=== PATIENT | male | born 1965 | race American Indian/Alaskan Native ===

== ENCOUNTER 2017-05-09 08:48 | Inpatient (IN) | payer OTHER ==
--- NOTE | 2017-05-09 09:22 | Emergency Department Report ---
Chief Complaint: Chest Pain Stated Complaint: SOB,HTN Time Seen by Provider: 05/09/17 09:16 - HPI History of Present Illness: PT c/o cough "for a while" pt also states that his stomach has been bloated. PT states now his right leg is swollen - ROS Review of Systems: + cough, worse at night + abd discomfort + ext edema - Exam Vital Signs: Vital Signs 05/09/17 09:04 Temperature 98 F Pulse Rate 102 H Respiratory 16 Rate Blood Pressure 182/136 O2 Sat by Pulse 98 Oximetry MSE screening note: Focused history and physical exam performed. Due to findings the following was ordered: labs, xr ED Disposition for MSE Condition: Stable
--- NOTE | 2017-05-09 09:36 | XRay Report ---
Chest 2 views: History: Cough. Findings: Cardiomegaly. Trachea is midline. Mild pulmonary venous congestion with minimal fluid in the horizontal and oblique fissures. Normal CP angles. No consolidation. Impression: Probable early CHF.
[2017-05-09 09:46] LABS: Eosinophils % (Auto) 0.7 % (0.0-4.3)
[2017-05-09 10:00] LABS: Platelet Count 170 K/mm3 (140-440)
[2017-05-09 10:04] LABS: Basophils % (Auto) 0.3 % (0.0-1.8); Hematocrit 46.2 % (35.5-45.6); Hemoglobin 14.8 gm/dl (11.8-15.2); Mean Corpuscular HGB Conc 32 % (32-34); Mean Corpuscular Hemoglobin 27 pg (28-32); Mean Corpuscular Volume 85 fl (84-94); Red Blood Count 5.43 M/mm3 (3.65-5.03); Red Cell Distribution Width 15.9 % (13.2-15.2)
[2017-05-09 10:12] LABS: Alanine Aminotransferase 25 units/L (7-56); Albumin 3.7 g/dL (3.9-5); Albumin/Globulin Ratio 1.2 %; Alkaline Phosphatase 44 units/L (35-129); Anion Gap 16 mmol/L; BUN/Creatinine Ratio 13.07; Blood Urea Nitrogen 17 mg/dL (9-20); Calcium 8.9 mg/dL (8.4-10.2); Carbon Dioxide 24 mmol/L (22-30); Chloride 104.9 mmol/L (98-107); Glucose 103 mg/dL (75-100); Potassium 4.3 mmol/L (3.6-5.0); Sodium 141 mmol/L (137-145); Total Protein 6.9 g/dL (6.3-8.2)
[2017-05-09] MEDS ORDERED: BABY ASPIRIN PO ONE (14:11)
[2017-05-09] MEDS ORDERED: LASIX IV ONE (14:11)
--- NOTE | 2017-05-09 14:11 | Emergency Department Report ---
ED General Adult HPI - General Chief complaint: Chest Pain Stated complaint: SOB,HTN Time Seen by Provider: 05/09/17 09:16 Source: patient, RN notes reviewed Mode of arrival: Ambulatory Limitations: No Limitations - History of Present Illness Initial comments: This is a 52-year-old male. He is previously unknown to me. His primary care doctor is Dr. Vargas He has a past medical history of hypertension. He presents to the ER complaining of shortness of breath, lower extremity swelling, unintentional weight gain, orthopnea, paroxysmal nocturnal dyspnea. This has been going on for the past 3 weeks. His symptoms are getting worse. He describes 3 pillow orthopnea. There is no leg pain. No recent trips greater than 4 hours. No recent hospital admissions. He denies dietary indiscretions. There is no personal history of DVT or pulmonary embolus. Laboratory studies an x-ray of the chest, along with physical examination suggested acute mild congestive heart failure. Patient is also found to be fairly hypertensive. Patient will be given low-dose hydralazine, Lasix, and aspirin. The case is presented to the Hospital physician, , who accepts the patient to his service. He indicates he will contact cardiology if he feels like it is necessary. -: Gradual Location: left, upper extremity, lower extremity Severity scale (0 -10): 2 Consistency: constant Improves with: rest Worsens with: movement Associated Symptoms: loss of appetite, shortness of breath - Related Data Allergies Allergy/AdvReac Type Severity Reaction Status Date / Time No Known Allergies Allergy Verified 05/09/17 09:09 ED Review of Systems ROS: Stated complaint: SOB,HTN Other details as noted in HPI Constitutional: denies: fever, malaise Eyes: denies: vision change ENT: denies: epistaxis Respiratory: shortness of breath Cardiovascular: dyspnea on exertion, paroxysmal nocturnal dyspnea Gastrointestinal: denies: abdominal pain, nausea, diarrhea Genitourinary: as per HPI. denies: urgency, dysuria Musculoskeletal: myalgia. denies: back pain, arthralgia Skin: denies: rash, lesions Neurological: weakness Psychiatric: denies: anxiety ED Past Medical Hx - Past Medical History Previous Medical History?: Yes Hx Hypertension: Yes - Surgical History Past Surgical History?: No - Social History Smoking Status: Former Smoker Substance Use Type: Alcohol ED Physical Exam - General Limitations: No Limitations General appearance: alert, in no apparent distress - Head Head exam: Present: atraumatic, normocephalic - Eye Eye exam: Present: normal appearance, EOMI. Absent: nystagmus - ENT ENT exam: Present: normal exam, normal orophraynx, mucous membranes moist, normal external ear exam - Neck Neck exam: Present: normal inspection, full ROM. Absent: tenderness, meningismus - Respiratory Respiratory exam: Present: normal lung sounds bilaterally. Absent: respiratory distress, wheezes, rales, rhonchi, stridor, chest wall tenderness, accessory muscle use, decreased breath sounds, prolonged expiratory - Cardiovascular Cardiovascular Exam: Present: regular rate, normal rhythm, normal heart sounds. Absent: bradycardia, tachycardia, irregular rhythm, systolic murmur, diastolic murmur, rubs, gallop - GI/Abdominal GI/Abdominal exam: Present: soft, normal bowel sounds. Absent: distended, tenderness, guarding, rebound, rigid, pulsatile mass - Rectal Rectal exam: Present: deferred - Extremities Exam Extremities exam: Present: normal inspection, full ROM, normal capillary refill , pedal edema. Absent: calf tenderness - Back Exam Back exam: Present: normal inspection, full ROM. Absent: tenderness, CVA tenderness (R), CVA tenderness (L), muscle spasm, paraspinal tenderness, vertebral tenderness - Neurological Exam Neurological exam: Present: alert, oriented X3, normal gait, other (Extraocular movements intact. Tongue midline. No facial droop. Facial sensation intact to light touch in the V1, V2, V3 distribution bilaterally. 5 and 5 strength in 4 extremities.. Sensation is intact to light touch in 4 extremities.). Absent : motor sensory deficit - Psychiatric Psychiatric exam: Present: normal affect, normal mood - Skin Skin exam: Present: warm, dry, intact, normal color. Absent: rash ED Course Vital Signs 05/09/17 05/09/17 05/09/17 09:04 13:50 14:02 Temperature 98 F 97.5 F L Pulse Rate 102 H 101 H Respiratory 16 22 Rate Blood Pressure 182/136 Blood Pressure 182/125 [Left] O2 Sat by Pulse 98 97 97 Oximetry ED Medical Decision Making - Lab Data Result diagrams: 05/09/17 09:33 05/09/17 09:33 Vital Signs 05/09/17 05/09/17 05/09/17 09:04 13:50 14:02 Temperature 98 F 97.5 F L Pulse Rate 102 H 101 H Respiratory 16 22 Rate Blood Pressure 182/136 Blood Pressure 182/125 [Left] O2 Sat by Pulse 98 97 97 Oximetry Lab Results 05/09/17 05/09/17 05/09/17 Range/Units 09:33 09:33 09:33 WBC 8.0 (4.5-11.0) K/mm3 RBC 5.43 H (3.65-5.03) M/mm3 Hgb 14.8 (11.8-15.2) gm/dl Hct 46.2 H (35.5-45.6) % MCV 85 (84-94) fl MCH 27 L (28-32) pg MCHC 32 (32-34) % RDW 15.9 H (13.2-15.2) % Plt Count 170 (140-440) K/mm3 Lymph % (Auto) 21.8 (13.4-35.0) % Mora % (Auto) 9.5 H (0.0-7.3) % Eos % (Auto) 0.7 (0.0-4.3) % Baso % (Auto) 0.3 (0.0-1.8) % Lymph # 1.7 (1.2-5.4) K/mm3 Mora # 0.8 (0.0-0.8) K/mm3 Eos # 0.1 (0.0-0.4) K/mm3 Baso # 0.0 (0.0-0.1) K/mm3 Seg Neutrophils % 67.7 (40.0-70.0) % Seg Neutrophils # 5.4 (1.8-7.7) K/mm3 PT (12.2-14.9) Sec. INR (0.87-1.13) Sodium 141 (137-145) mmol/L Potassium 4.3 (3.6-5.0) mmol/L Chloride 104.9 (98-107) mmol/L Carbon Dioxide 24 (22-30) mmol/L Anion Gap 16 mmol/L BUN 17 (9-20) mg/dL Creatinine 1.3 (0.8-1.5) mg/dL Estimated GFR > 60 ml/min BUN/Creatinine Ratio 13.07 % Glucose 103 H (75-100) mg/dL Calcium 8.9 (8.4-10.2) mg/dL Total Bilirubin 0.60 (0.1-1.2) mg/dL AST 22 (5-40) units/L ALT 25 (7-56) units/L Alkaline Phosphatase 44 (35-129) units/L Troponin T (0.00-0.029) ng/mL NT-Pro-B Natriuret Pep 5177 H (0-900) pg/mL Total Protein 6.9 (6.3-8.2) g/dL Albumin 3.7 L (3.9-5) g/dL Albumin/Globulin Ratio 1.2 % Lipase 21 (13-60) units/L 05/09/17 05/09/17 Range/Units 13:42 13:42 WBC (4.5-11.0) K/mm3 RBC (3.65-5.03) M/mm3 Hgb (11.8-15.2) gm/dl Hct (35.5-45.6) % MCV (84-94) fl MCH (28-32) pg MCHC (32-34) % RDW (13.2-15.2) % Plt Count (140-440) K/mm3 Lymph % (Auto) (13.4-35.0) % Mora % (Auto) (0.0-7.3) % Eos % (Auto) (0.0-4.3) % Baso % (Auto) (0.0-1.8) % Lymph # (1.2-5.4) K/mm3 Mora # (0.0-0.8) K/mm3 Eos # (0.0-0.4) K/mm3 Baso # (0.0-0.1) K/mm3 Seg Neutrophils % (40.0-70.0) % Seg Neutrophils # (1.8-7.7) K/mm3 PT 16.1 H (12.2-14.9) Sec. INR 1.30 H (0.87-1.13) Sodium (137-145) mmol/L Potassium (3.6-5.0) mmol/L Chloride (98-107) mmol/L Carbon Dioxide (22-30) mmol/L Anion Gap mmol/L BUN (9-20) mg/dL Creatinine (0.8-1.5) mg/dL Estimated GFR ml/min BUN/Creatinine Ratio % Glucose (75-100) mg/dL Calcium (8.4-10.2) mg/dL Total Bilirubin (0.1-1.2) mg/dL AST (5-40) units/L ALT (7-56) units/L Alkaline Phosphatase (35-129) units/L Troponin T 0.023 (0.00-0.029) ng/mL NT-Pro-B Natriuret Pep (0-900) pg/mL Total Protein (6.3-8.2) g/dL Albumin (3.9-5) g/dL Albumin/Globulin Ratio % Lipase (13-60) units/L - EKG Data -: EKG Interpreted by Me EKG shows normal: sinus rhythm Rate: normal - EKG Data 05/09/17 14:43 and normal sinus beats minute, normal axis, QTC 498 ms, poor R wave progression, T-wave inversion V5 and V6, left ventricular hypertrophy, not consistent with STEMI, nonspecific changes when compared to prior. - Radiology Data Radiology results: report reviewed, image reviewed X-ray of the chest suggest cardiomegaly, congestive heart failure. Pulmonary vascular congestion noted. - Medical Decision Making Differential diagnoses: Pneumonia, acute coronary syndrome, hypertensive urgency , new onset congestive heart failure Assessment and plan: 52-year-old male who was chest pain-free with 3 weeks of shortness of breath, orthopnea, paroxysmal nocturnal dyspnea, most likely consistent with mildly decompensated congestive heart failure. Given that he reports this is his first episode of congestive heart failure, the patient is at risk for arrhythmia. He will be admitted for blood pressure control, diuresis, further inpatient cardiology management. Critical care attestation.: If time is entered above; I have spent that time in minutes in the direct care of this critically ill patient, excluding procedure time. ED Disposition Clinical Impression: CHF (congestive heart failure) Disposition: OP ADMIT IP TO THIS HOSP Is pt being admited?: Yes Condition: Stable Referrals: PRIMARY CARE, [Primary Care Provider] - 3-5 Days
[2017-05-09 14:16] LABS: INR 1.3 (0.87-1.13)
[2017-05-09] MEDS ORDERED: APRESOLINE IV ONE (14:44)
[2017-05-09] MEDS ORDERED: ZOFRAN IV PRN (16:34)
[2017-05-09] MEDS ORDERED: TYLENOL PO PRN (16:34)
[2017-05-09] MEDS ORDERED: MORPHINE IV PRN (16:34)
[2017-05-09] MEDS ORDERED: DULCOLAX PR PRN (16:34)
[2017-05-09] MEDS ORDERED: MILK OF MAGNESIA PO PRN (16:34)
[2017-05-09] MEDS ORDERED: NITROSTAT SL PRN (16:34)
[2017-05-09] MEDS ORDERED: LOVENOX SUB-Q ONE ×2 (16:43→18:41)
[2017-05-09] MEDS ORDERED: PROTONIX IV ONE ×2 (16:44→18:41)
[2017-05-09] MEDS ORDERED: APRESOLINE IV PRN (16:52)
[2017-05-09] MEDS ORDERED: APRESOLINE ONE (16:58)
--- NOTE | 2017-05-09 17:18 | History and Physical Report ---
History of Present Illness Date of examination: 05/09/17 Date of admission: 05/09/2017 Chief complaint: Shortness of breath History of present illness: Patient is a 52 years old male with no significant past medical history presenting with 3 weeks of worsening dyspnea on light exertion, chest pain, cough, and right leg swelling . Just over 3weeks ago the patient was at his normal baseline state of health. Now he has had progressive worsening of his dyspnea on exertion ([place]) to where he cannot walk across a room without becoming short of breath; he has never had anything like this before. He rates his breathing troubles as a 7 of 10, with 10 being cant breathe at all and 1 being normal. progressive worsening in the last 3 weeks. He says the quality of his breathing is just like suffocating but he denies burning in his lungs or other feelings. Additionally, he has a dry cough with whitish mucus that is not bloody or bilious. He often experiences an aching/burning pain across his whole anterior chest, and sometimes he has more of a tightness in his chest. The chest pain is like bad heartburn. All of his symptoms have always occurred without a noticeable trigger. The patient did experience orthopnea, and paroxysmal nocturnal dyspnea. He progressively begin to sleep with more pillows. Also patient reported his stomach is bloated and right leg swelling for the last 3 days.No hx of recurrent pneumonia. He has no sick contact, TB exposure. He has had no fevers, chills, or night sweats. He has no allergies, seasonal or otherwise, and no hx of breathing troubles/asthma. Past History Past Medical History: hypertension Past Surgical History: No surgical history Social history: , lives with family Family history: hypertension Medications and Allergies Allergies Allergy/AdvReac Type Severity Reaction Status Date / Time No Known Allergies Allergy Verified 05/09/17 09:09 Home Medications Medication Instructions Recorded Confirmed Last Taken Type Lisinopril [Zestril] 40 mg PO DAILY 05/09/17 05/09/17 05/09/17 History amLODIPine [Norvasc] 10 mg PO DAILY 05/09/17 05/09/17 05/08/17 History Active Meds: Active Medications Acetaminophen (Tylenol) 650 mg PO Q4H PRN PRN Reason: Pain MILD(1-3)/Fever >100.5/MORA Aspirin (Aspirin) 325 mg PO QDAY JORDANA Bisacodyl (Dulcolax) 10 mg [place] QDAY PRN PRN Reason: Constipation unrelieved by [facility] Furosemide (Lasix) 40 mg IV BID@0600,1800 JORDANA Hydralazine HCl (Apresoline) 10 mg IV Q3HR PRN PRN Reason: Hypertension Lisinopril (Zestril) 40 mg PO DAILY JORDANA Magnesium Hydroxide (Milk Of Magnesia) 30 ml PO Q4H PRN PRN Reason: Constipation Morphine Sulfate (Morphine) 2 mg IV Q4H PRN PRN Reason: For Chest Pain Nitroglycerin (Nitrostat) 0.4 mg SL .Q5MIN PRN PRN Reason: Chest Pain Ondansetron HCl (Zofran) 4 mg IV Q8H PRN PRN Reason: N/V unrelieved by Reglan Review of Systems Constitutional: poor appetite, no weight loss, no weight gain, no fever, no chills, no sweats Ears, nose, mouth and throat: no ear pain, no ear discharge, no tinnitis, no decreased hearing, no nose pain Cardiovascular: orthopnea, edema (Right Leg), shortness of breath, dyspnea on exertion, paroxysmal nocturnal dyspnea, high blood pressure, leg edema, decreased exercise tolerance Respiratory: cough, shortness of breath, no excessive sputum, no hemoptysis Gastrointestinal: no abdominal pain, no nausea, no vomiting Genitourinary Male: no dysuria, no hematuria, no flank pain Rectal: no pain, no incontinence Musculoskeletal: no neck stiffness, no neck pain Integumentary: deferred, no rash, no pruritis Neurological: no head injury, no transient paralysis, no paralysis Psychiatric: no anxiety, no memory loss, no change in sleep habits, no sleep disturbances Endocrine: no cold intolerance, no heat intolerance, no polyphagia Hematologic/Lymphatic: no easy bruising, no easy bleeding Allergic/Immunologic: no urticaria, no allergic rhinitis Exam - Constitutional Vitals: Temp Pulse Resp BP Pulse Ox 97.5 F L 92 H 21 168/127 99 05/09/17 13:50 05/09/17 16:41 05/09/17 16:41 05/09/17 16:41 05/09/17 16:41 General appearance: Present: no acute distress - EENT Eyes: Present: PERRL, EOM intact ENT: hearing intact, clear oral mucosa, dentition normal - Neck Neck: Present: supple, normal ROM - Respiratory Respiratory effort: normal Respiratory: bilateral: rales - Cardiovascular Heart Sounds: Present: S1 & S2. Absent: rub, click - Extremities Extremities: pulses symmetrical Extremity abnormal: edema (Right leg) Peripheral Pulses: within normal limits - Abdominal General gastrointestinal: Present: distended (Mild). Absent: soft Male genitourinary: Present: deferred - Rectal Rectal Exam: deferred - Integumentary Integumentary: Present: clear, warm, dry - Musculoskeletal Musculoskeletal: gait normal, strength equal bilaterally - Psychiatric Psychiatric: appropriate mood/affect, intact judgment & insight - Neurologic Neurologic: CNII-XII intact, moves all extremities Results - Labs CBC & Chem 7: 05/09/17 09:33 05/09/17 09:33 Labs: Laboratory Last Values WBC 8.0 K/mm3 (4.5-11.0) 05/09/17 09:33 RBC 5.43 M/mm3 (3.65-5.03) H 05/09/17 09:33 Hgb 14.8 gm/dl (11.8-15.2) 05/09/17 09:33 Hct 46.2 % (35.5-45.6) H 05/09/17 09:33 MCV 85 fl (84-94) 05/09/17 09:33 MCH 27 pg (28-32) L 05/09/17 09:33 MCHC 32 % (32-34) 05/09/17 09:33 RDW 15.9 % (13.2-15.2) H 05/09/17 09:33 Plt Count 170 K/mm3 (140-440) 05/09/17 09:33 Lymph % (Auto) 21.8 % (13.4-35.0) 05/09/17 09:33 Fisher % (Auto) 9.5 % (0.0-7.3) H 05/09/17 09:33 Eos % (Auto) 0.7 % (0.0-4.3) 05/09/17 09:33 Baso % (Auto) 0.3 % (0.0-1.8) 05/09/17 09:33 Lymph # 1.7 K/mm3 (1.2-5.4) 05/09/17 09:33 Fisher # 0.8 K/mm3 (0.0-0.8) 05/09/17 09:33 Eos # 0.1 K/mm3 (0.0-0.4) 05/09/17 09:33 Baso # 0.0 K/mm3 (0.0-0.1) 05/09/17 09:33 Seg Neutrophils % 67.7 % (40.0-70.0) 05/09/17 09:33 Seg Neutrophils # 5.4 K/mm3 (1.8-7.7) 05/09/17 09:33 PT 16.1 Sec. (12.2-14.9) H 05/09/17 13:42 INR 1.30 (0.87-1.13) H 05/09/17 13:42 Sodium 141 mmol/L (137-145) 05/09/17 09:33 Potassium 4.3 mmol/L (3.6-5.0) 05/09/17 09:33 Chloride 104.9 mmol/L (98-107) 05/09/17 09:33 Carbon Dioxide 24 mmol/L (22-30) 05/09/17 09:33 Anion Gap 16 mmol/L 05/09/17 09:33 BUN 17 mg/dL (9-20) 05/09/17 09:33 Creatinine 1.3 mg/dL (0.8-1.5) 05/09/17 09:33 Estimated GFR > 60 ml/min 05/09/17 09:33 BUN/Creatinine Ratio 13.07 % 05/09/17 09:33 Glucose 103 mg/dL (75-100) H 05/09/17 09:33 Calcium 8.9 mg/dL (8.4-10.2) 05/09/17 09:33 Magnesium 2.00 mg/dL (1.7-2.3) 05/09/17 14:15 Total Bilirubin 0.60 mg/dL (0.1-1.2) 05/09/17 09:33 AST 22 units/L (5-40) 05/09/17 09:33 ALT 25 units/L (7-56) 05/09/17 09:33 Alkaline Phosphatase 44 units/L (35-129) 05/09/17 09:33 Troponin T 0.023 ng/mL (0.00-0.029) 05/09/17 13:42 NT-Pro-B Natriuret Pep 5177 pg/mL (0-900) H 05/09/17 09:33 Total Protein 6.9 g/dL (6.3-8.2) 05/09/17 09:33 Albumin 3.7 g/dL (3.9-5) L 05/09/17 09:33 Albumin/Globulin Ratio 1.2 % 05/09/17 09:33 Lipase 21 units/L (13-60) 05/09/17 09:33 Assessment and Plan Assessment and plan: ASSESSMENT/PLAN 1. New-onset congestive heart failure (CHF) with exacerbation We will admit to Telemetry EChocardiogram ordered. Start on Lasix 40mg IV BID, kcl 20 meq po q12h Beta blockers andACE inhibitor Strict I/O's and daily weights Low-sodium/Cardiac diet, fluid restriction Closely monitor electrolytes Cardiology consulted for further evaluation 2. Accelerated Hypertension We will start home blood pressure pills IV Hydrazine PRN ordered .Adjust or add Hydralazine 50 mg po q 8 if necessary 3 :VTE/GI Prophylaxis Lovenox/ Protonix
[2017-05-09] MEDS: LASIX IV SCH (18:43)
[2017-05-09] MEDS: COREG PO SCH (21:37)
[2017-05-09] MEDS: K-DUR PO SCH (21:37)
[2017-05-10] MEDS: LASIX IV SCH ×2 (06:06→17:27)
[2017-05-10 08:38] LABS: Basophils % (Auto) 0.5 % (0.0-1.8); Hematocrit 47.8 % (35.5-45.6); Hemoglobin 15.3 gm/dl (11.8-15.2); Mean Corpuscular HGB Conc 32 % (32-34); Mean Corpuscular Hemoglobin 27 pg (28-32); Mean Corpuscular Volume 84 fl (84-94); Red Blood Count 5.68 M/mm3 (3.65-5.03); Red Cell Distribution Width 15.8 % (13.2-15.2); White Blood Count 8.1 K/mm3 (4.5-11.0)
[2017-05-10 08:41] LABS: Platelet Count 159 K/mm3 (140-440)
--- NOTE | 2017-05-10 08:49 | Admit Criteria Form ---
Admission Criteria Documentation: HEART FAILURE: COMMON COMPLICATIONS Clinical Indications for Inpatient Care (Place 'X' for any and all applicable criteria): Ongoing inpatient care may be indicated for heart failure with ANY ONE of the following (1)(2)(3)(4)(5): [ ]I. Ongoing need for care for primary condition requiring frequent therapy adjustments because of changes in cardiac function (eg, drug dosage changes for drugs that are renally metabolized) [ ]II. New-onset heart failure [ ]III. Heart failure with decreased urine output not responsive to attempts to optimize volume status [ ]IV. Acute cardiac ischemia causing or associated with failure [X]V. Complications of heart failure, including ANY ONE of the following: [ ]a) Pericardial effusion [ ]b) Symptomatic pleural effusion [ ]c) O2 saturation <90% or PO2 < 60 mm Hg (8.0 kPa) on room air or require baseline supplemental O2 [ ]d) Tachypnea [X]e) Dyspnea [ ]f) Syncope [ ]g) Change in mental status [ ]h) Acute renal insufficiency that is severe (reduction of more than 50% in estimated glomerular filtration rate from baseline) or progressive reduction of more than 25% in estimated glomerular filtration rate from baseline, with creatinine continuing to rise) [ ]i) Hemodynamic instability [ ]j) Anasarca [ ]k) Clinically significant metabolic abnormalities due to heart failure (eg, new-onset metabolic acidosis) Extended stay beyond goal length of stay for primary condition may be needed until ALL of the following are present(1)(3): [ ]a) Stable and effective diuretic regimen established (or patient on stable dialysis regimen if in chronic renal failure) [ ]b) Breathing comfortably at rest [ ]c) Saturation of arterial oxygen greater than 90% or at acceptable baseline [ ]d) Pulmonary edema absent or improved [ ]e) Hemodynamic stability [ ]f) Volume status acceptable on oral medication [ ]g) Peripheral or sacral edema absent or improved [ ]h) Renal function stable and manageable at a lower level of care [ ]i) Complications (eg, pleural effusion) resolved or manageable at a lower level of care [ ]j) Patient or caregiver has received written discharge instructions or educational material addressing activity level, diet, discharge medications, follow-up appointment, weight monitoring, and what to do if symptoms worsen The original [email or web address] content created by [employer] has been revised. The portions of the content which have been revised are identified through the use of italic text or in bold, and [facility] has neither reviewed nor approved the modified material.All other unmodified content is copyright [facility]. Please see references footnoted in the original [facility] edition 2016 Admission Criteria Met: Yes
[2017-05-10 09:47] LABS: BUN/Creatinine Ratio 9.33; Calcium 9.2 mg/dL (8.4-10.2)
[2017-05-10 09:48] LABS: Chloride 101.4 mmol/L (98-107); Potassium 3.9 mmol/L (3.6-5.0)
--- NOTE | 2017-05-10 11:03 | Consultation ---
History of Present Illness Consult date: 05/10/17 Consult reason: congestive heart failure History of present illness: 52yr old male who reports a history of Hypertension who presented to the ED with complaints of progressive shortness of breath associated with lower extremity edema. Noted hypertensive on presentation, BP 182/136. Patient denies chest pain. There is no prior cardiac history and prior cardiac workup. His ECG shows a sinus rhythm with LVH and nonspecific ST abnormalities. Chest x-ray reports mild pulmonary congestion. Labs notable for a elevation in proBNP of 5177. Cardiology consultation requested for CHF evaluation. Past History Past Medical History: hypertension Past Surgical History: No surgical history Social history: , lives with family Family history: hypertension Medications and Allergies Allergies Allergy/AdvReac Type Severity Reaction Status Date / Time No Known Allergies Allergy Verified 05/09/17 09:09 Home Medications Medication Instructions Recorded Confirmed Last Taken Type Lisinopril [Zestril] 40 mg PO DAILY 05/09/17 05/09/17 05/09/17 History amLODIPine [Norvasc] 10 mg PO DAILY 05/09/17 05/09/17 05/08/17 History Active Meds: Active Medications Acetaminophen (Tylenol) 650 mg PO Q4H PRN PRN Reason: Pain MILD(1-3)/Fever >100.5/MROA Aspirin (Aspirin) 325 mg PO QDAY [facility] Bisacodyl (Dulcolax) 10 mg [place] QDAY PRN PRN Reason: Constipation unrelieved by MOM Carvedilol (Coreg) 6.25 mg PO BID [facility] Last Admin: 05/09/17 21:37 Dose: 6.25 mg Furosemide (Lasix) 40 mg IV BID@0600,1800 [facility] Last Admin: 05/10/17 06:06 Dose: 40 mg Hydralazine HCl (Apresoline) 10 mg IV Q3HR PRN PRN Reason: Hypertension Last Admin: 05/09/17 18:42 Dose: 10 mg Lisinopril (Zestril) 40 mg PO DAILY [facility] Magnesium Hydroxide (Milk Of Magnesia) 30 ml PO Q4H PRN PRN Reason: Constipation Morphine Sulfate (Morphine) 2 mg IV Q4H PRN PRN Reason: For Chest Pain Last Admin: 05/09/17 21:38 Dose: 2 mg Nitroglycerin (Nitrostat) 0.4 mg SL .Q5MIN PRN PRN Reason: Chest Pain Potassium Chloride (K-Dur) 20 meq PO Q12HR JORDANA Last Admin: 05/09/17 21:37 Dose: 20 meq Physical Examination Vital Signs Temp Pulse Resp BP Pulse Ox 98 F 102 H 16 182/136 98 05/09/17 09:04 05/09/17 09:04 05/09/17 09:04 05/09/17 09:04 05/09/17 09:04 General appearance: no acute distress HEENT: Positive: PERRL Neck: Positive: trachea midline Cardiac: Positive: Reg Rate and Rhythm Lungs: Positive: Normal Breath Sounds Neuro: Positive: Grossly Intact Extremities: Absent: edema Results 05/10/17 07:44 05/10/17 07:44 CBC 05/10/17 Range/Units 07:44 WBC 8.1 (4.5-11.0) K/mm3 RBC 5.68 H (3.65-5.03) M/mm3 Hgb 15.3 H (11.8-15.2) gm/dl Hct 47.8 H (35.5-45.6) % Plt Count 159 (140-440) K/mm3 Lymph # 1.4 (1.2-5.4) K/mm3 [place] # 1.0 H (0.0-0.8) K/mm3 Eos # 0.1 (0.0-0.4) K/mm3 Baso # 0.0 (0.0-0.1) K/mm3 Comprehensive Metabolic Panel 05/10/17 Range/Units 07:44 Sodium 141 (137-145) mmol/L Potassium 3.9 (3.6-5.0) mmol/L Chloride 101.4 (98-107) mmol/L Carbon Dioxide 23 (22-30) mmol/L BUN 14 (9-20) mg/dL Creatinine 1.5 (0.8-1.5) mg/dL Glucose 91 (75-100) mg/dL Calcium 9.2 (8.4-10.2) mg/dL Assessment and Plan Shortness of breath Hypertension We will get an echocardiogram for LVEF assessment.
[2017-05-10] MEDS: ASPIRIN PO SCH (11:34)
[2017-05-10] MEDS: ZESTRIL PO SCH (11:35)
[2017-05-10] MEDS: COREG PO SCH ×2 (11:35→21:28)
[2017-05-10] MEDS: K-DUR PO SCH ×2 (11:35→21:31)
--- NOTE | 2017-05-10 12:31 | Progress Note ---
Assessment and Plan Assessment and plan: Patient is 52 yo man with a h/o HTN on Norvasc and Lisinopril by his PCP, Dr. Truong Vargas who presents with cp/sob. CXR reported as probable early CHF. Troponin negative x 1, will repeat with CKMB. -Acute heart failure, new onset: ECHO, Cardiology is following -Right leg swelling: I ordered venous doppler which was negative for DVT -Uncontrolled Hypertension with heart failure: diuresis -DVT prophylaxis: on sq lovenox History Interval history: Patient seen and examined, follow up for sob which has improved. Hospitalist Physical - Physical exam Narrative exam: GEN: nad a/o x 3 CVS: RRR normal s1s2 Lungs: bilateral crackles but good air entry b abd: soft ntnd gbs Ext: right leg slightly bigger than left, no tenderness Neuro: nonfocal - Constitutional Vitals: Temp Pulse Resp BP Pulse Ox 98.1 F 85 14 156/93 85 05/10/17 10:29 05/10/17 10:29 05/10/17 10:29 05/10/17 10:29 05/10/17 10:29 General appearance: Present: no acute distress Results - Labs CBC & Chem 7: 05/10/17 07:44 05/10/17 07:44 Labs: Laboratory Last Values WBC 8.1 K/mm3 (4.5-11.0) 05/10/17 07:44 RBC 5.68 M/mm3 (3.65-5.03) H 05/10/17 07:44 Hgb 15.3 gm/dl (11.8-15.2) H 05/10/17 07:44 Hct 47.8 % (35.5-45.6) H 05/10/17 07:44 MCV 84 fl (84-94) 05/10/17 07:44 MCH 27 pg (28-32) L 05/10/17 07:44 MCHC 32 % (32-34) 05/10/17 07:44 RDW 15.8 % (13.2-15.2) H 05/10/17 07:44 Plt Count 159 K/mm3 (140-440) 05/10/17 07:44 Lymph % (Auto) 17.0 % (13.4-35.0) 05/10/17 07:44 [place] % (Auto) 12.0 % (0.0-7.3) H 05/10/17 07:44 Eos % (Auto) 1.0 % (0.0-4.3) 05/10/17 07:44 Baso % (Auto) 0.5 % (0.0-1.8) 05/10/17 07:44 Lymph # 1.4 K/mm3 (1.2-5.4) 05/10/17 07:44 [place] # 1.0 K/mm3 (0.0-0.8) H 05/10/17 07:44 Eos # 0.1 K/mm3 (0.0-0.4) 05/10/17 07:44 Baso # 0.0 K/mm3 (0.0-0.1) 05/10/17 07:44 Seg Neutrophils % 69.5 % (40.0-70.0) 05/10/17 07:44 Seg Neutrophils # 5.7 K/mm3 (1.8-7.7) 05/10/17 07:44 PT 16.1 Sec. (12.2-14.9) H 05/09/17 13:42 INR 1.30 (0.87-1.13) H 05/09/17 13:42 Sodium 141 mmol/L (137-145) 05/10/17 07:44 Potassium 3.9 mmol/L (3.6-5.0) 05/10/17 07:44 Chloride 101.4 mmol/L (98-107) 05/10/17 07:44 Carbon Dioxide 23 mmol/L (22-30) 05/10/17 07:44 Anion Gap 21 mmol/L 05/10/17 07:44 BUN 14 mg/dL (9-20) 05/10/17 07:44 Creatinine 1.5 mg/dL (0.8-1.5) 05/10/17 07:44 Estimated GFR 59 ml/min 05/10/17 07:44 BUN/Creatinine Ratio 9.33 % 05/10/17 07:44 Glucose 91 mg/dL (75-100) 05/10/17 07:44 Calcium 9.2 mg/dL (8.4-10.2) 05/10/17 07:44 Magnesium 2.00 mg/dL (1.7-2.3) 05/09/17 14:15 Total Bilirubin 0.60 mg/dL (0.1-1.2) 05/09/17 09:33 AST 22 units/L (5-40) 05/09/17 09:33 ALT 25 units/L (7-56) 05/09/17 09:33 Alkaline Phosphatase 44 units/L (35-129) 05/09/17 09:33 Troponin T 0.023 ng/mL (0.00-0.029) 05/09/17 13:42 NT-Pro-B Natriuret Pep 5177 pg/mL (0-900) H 05/09/17 09:33 Total Protein 6.9 g/dL (6.3-8.2) 05/09/17 09:33 Albumin 3.7 g/dL (3.9-5) L 05/09/17 09:33 Albumin/Globulin Ratio 1.2 % 05/09/17 09:33 Lipase 21 units/L (13-60) 05/09/17 09:33
[2017-05-10 14:22] LABS: Creatine Kinase MB 1.9 ng/mL (0.0-4.0)
[2017-05-10 22:08] LABS: Creatine Kinase MB 2.1 ng/mL (0.0-4.0)
[2017-05-11] MEDS: LASIX IV SCH ×2 (05:32→18:33)
[2017-05-11 08:28] LABS: Hematocrit 47.3 % (35.5-45.6); Hemoglobin 15.2 gm/dl (11.8-15.2); Mean Corpuscular HGB Conc 32 % (32-34); Mean Corpuscular Hemoglobin 27 pg (28-32); Mean Corpuscular Volume 84 fl (84-94); Red Blood Count 5.65 M/mm3 (3.65-5.03); White Blood Count 7.5 K/mm3 (4.5-11.0)
--- NOTE | 2017-05-11 08:31 | Ultrasound Report ---
ULTRASOUND ABDOMEN LIMITED/ASCITES SCAN INDICATION: Abdominal distention. Evaluate for ascites. COMPARISON: None similar. FINDINGS: Sonographic imaging of all 4 abdominal quadrants demonstrates no significant ascites. Small right pleural effusion incidentally seen. CONCLUSION: Small right pleural effusion without evidence of ascites, as described. Thank you for the opportunity to participate in this patient's care.
[2017-05-11 08:42] LABS: Platelet Count 158 K/mm3 (140-440)
[2017-05-11 08:43] LABS: Anion Gap 19 mmol/L; BUN/Creatinine Ratio 11.53; Blood Urea Nitrogen 15 mg/dL (9-20); Calcium 9.2 mg/dL (8.4-10.2); Carbon Dioxide 23 mmol/L (22-30); Chloride 101.9 mmol/L (98-107); Glucose 96 mg/dL (75-100); Potassium 3.8 mmol/L (3.6-5.0); Sodium 140 mmol/L (137-145)
--- NOTE | 2017-05-11 09:32 | Progress Note ---
Assessment and Plan Acute heart failure, systolic EF 10-15% on echocardiogram History of alcohol abuse Rule out liver dysfunction Systemic Hypertension Subjective Date of service: 05/11/17 Interval history: Sinus rhythm on telemetry. Objective Vital Signs Temp Pulse Pulse Resp Resp BP BP 05/11/17 07:41 80 05/11/17 05:42 98.6 F 75 20 158/99 158/99 05/11/17 00:57 98.8 F 74 18 134/88 134/88 05/11/17 00:02 83 05/10/17 20:00 97.4 F L 83 18 153/102 153/102 05/10/17 18:13 98.0 F 89 12 160/107 160/107 05/10/17 13:00 88 05/10/17 10:29 98.1 F 85 14 156/93 05/10/17 10:00 88 20 20 Pulse Ox 05/11/17 07:41 05/11/17 05:42 95 05/11/17 00:57 98 05/11/17 00:02 05/10/17 20:00 05/10/17 18:13 95 05/10/17 13:00 05/10/17 10:29 85 05/10/17 10:00 99 - Physical Examination General: No Apparent Distress HEENT: Positive: PERRL Neck: Positive: trachea midline Cardiac: Positive: Reg Rate and Rhythm Neuro: Positive: Grossly Intact Extremities: Absent: edema - Labs and Meds Cardiac Enzymes 05/10/17 05/10/17 Range/Units 13:27 21:01 CK-MB (CK-2) 1.9 2.1 (0.0-4.0) ng/mL Coagulation 05/11/17 Range/Units 07:24 APTT < 20.0 L (24.2-36.6) Sec. CBC 05/11/17 Range/Units 07:24 WBC 7.5 (4.5-11.0) K/mm3 RBC 5.65 H (3.65-5.03) M/mm3 Hgb 15.2 (11.8-15.2) gm/dl Hct 47.3 H (35.5-45.6) % Plt Count 158 (140-440) K/mm3 Comprehensive Metabolic Panel 05/10/17 05/11/17 Range/Units 07:44 07:24 Sodium 141 140 (137-145) mmol/L Potassium 3.9 3.8 (3.6-5.0) mmol/L Chloride 101.4 101.9 (98-107) mmol/L Carbon Dioxide 23 23 (22-30) mmol/L BUN 14 15 (9-20) mg/dL Creatinine 1.5 1.3 (0.8-1.5) mg/dL Glucose 91 96 (75-100) mg/dL Calcium 9.2 9.2 (8.4-10.2) mg/dL
[2017-05-11] MEDS: COREG PO SCH ×2 (10:49→21:19)
[2017-05-11] MEDS: ZESTRIL PO SCH (10:49)
[2017-05-11] MEDS: K-DUR PO SCH ×2 (10:49→21:19)
[2017-05-11] MEDS: ASPIRIN PO SCH (10:49)
[2017-05-11 10:51] LABS: INR 1.22 (0.87-1.13)
[2017-05-11 10:55] LABS: Partial Thromboplastin Time 32.1 Sec. (24.2-36.6)
--- NOTE | 2017-05-11 16:51 | Vascular Lab Report ---
Right Lower Extremity Venous Duplex Study: Reason for Exam: Swelling of the right lower extremity. Comments on the Right: All veins visualized are freely compressible without evidence of internal echogenicity. Flow is spontaneous and phasic throughout. No evidence of acute or chronic thrombus is seen in any of the vessels visualized. Comments on the Left: A limited duplex study was done of the proximal veins of the left lower extremity. All veins visualized are freely compressible without evidence of internal echogenicity. Flow is spontaneous and phasic throughout. No evidence of acute or chronic thrombus is seen in any of the vessels visualized. Impression: No evidence of acute or chronic deep venous thrombosis in the right lower extremity.
--- NOTE | 2017-05-11 17:04 | Progress Note ---
Assessment and Plan Assessment and plan: Patient is 52 yo man with a h/o HTN on Norvasc and Lisinopril by his PCP, Dr. Truong Vargas who presents with cp/sob. CXR reported as probable early CHF. Troponin and cardiac enzymes negative 3. Patient gives a history of father having heart problems in his early 50s. -Acute systolic heart failure, new onset: ECHO estimated EF 10-15%, Cardiology is following -Right leg swelling: I ordered venous doppler which was negative for DVT -Uncontrolled Hypertension with heart failure: diuresis -DVT prophylaxis: on sq lovenox Possible stress test in a.m. or discharge once cleared by cardiology History Interval history: Patient seen and examined, follow up for sob which has improved. Patient denies chest pain. Hospitalist Physical - Physical exam Narrative exam: GEN: nad a/o x 3 CVS: RRR normal s1s2 Lungs: bilateral crackles but good air entry b abd: soft ntnd gbs Ext: right leg slightly bigger than left, no tenderness Neuro: nonfocal - Constitutional Vitals: Temp Pulse Resp BP Pulse Ox 98.1 F 77 20 142/107 98 05/11/17 08:22 05/11/17 08:22 05/11/17 08:22 05/11/17 08:22 05/11/17 08:22 General appearance: Present: no acute distress Results - Labs CBC & Chem 7: 05/11/17 07:24 05/11/17 07:24 Labs: Laboratory Last Values WBC 7.5 K/mm3 (4.5-11.0) 05/11/17 07:24 RBC 5.65 M/mm3 (3.65-5.03) H 05/11/17 07:24 Hgb 15.2 gm/dl (11.8-15.2) 05/11/17 07:24 Hct 47.3 % (35.5-45.6) H 05/11/17 07:24 MCV 84 fl (84-94) 05/11/17 07:24 MCH 27 pg (28-32) L 05/11/17 07:24 MCHC 32 % (32-34) 05/11/17 07:24 RDW 16.0 % (13.2-15.2) H 05/11/17 07:24 Plt Count 158 K/mm3 (140-440) 05/11/17 07:24 Lymph % (Auto) 17.0 % (13.4-35.0) 05/10/17 07:44 [place] % (Auto) 12.0 % (0.0-7.3) H 05/10/17 07:44 Eos % (Auto) 1.0 % (0.0-4.3) 05/10/17 07:44 Baso % (Auto) 0.5 % (0.0-1.8) 05/10/17 07:44 Lymph # 1.4 K/mm3 (1.2-5.4) 05/10/17 07:44 [place] # 1.0 K/mm3 (0.0-0.8) H 05/10/17 07:44 Eos # 0.1 K/mm3 (0.0-0.4) 05/10/17 07:44 Baso # 0.0 K/mm3 (0.0-0.1) 05/10/17 07:44 Seg Neutrophils % 69.5 % (40.0-70.0) 05/10/17 07:44 Seg Neutrophils # 5.7 K/mm3 (1.8-7.7) 05/10/17 07:44 PT 15.3 Sec. (12.2-14.9) H 05/11/17 07:24 INR 1.22 (0.87-1.13) H 05/11/17 07:24 APTT 32.1 Sec. (24.2-36.6) 05/11/17 07:24 Sodium 140 mmol/L (137-145) 05/11/17 07:24 Potassium 3.8 mmol/L (3.6-5.0) 05/11/17 07:24 Chloride 101.9 mmol/L (98-107) 05/11/17 07:24 Carbon Dioxide 23 mmol/L (22-30) 05/11/17 07:24 Anion Gap 19 mmol/L 05/11/17 07:24 BUN 15 mg/dL (9-20) 05/11/17 07:24 Creatinine 1.3 mg/dL (0.8-1.5) 05/11/17 07:24 Estimated GFR > 60 ml/min 05/11/17 07:24 BUN/Creatinine Ratio 11.53 % 05/11/17 07:24 Glucose 96 mg/dL (75-100) 05/11/17 07:24 Calcium 9.2 mg/dL (8.4-10.2) 05/11/17 07:24 Magnesium 2.10 mg/dL (1.7-2.3) 05/11/17 07:24 Total Bilirubin 0.60 mg/dL (0.1-1.2) 05/09/17 09:33 AST 22 units/L (5-40) 05/09/17 09:33 ALT 25 units/L (7-56) 05/09/17 09:33 Alkaline Phosphatase 44 units/L (35-129) 05/09/17 09:33 Total Creatine Kinase 186 units/L (55-170) H 05/10/17 21:01 CK-MB (CK-2) 2.1 ng/mL (0.0-4.0) 05/10/17 21:01 CK-MB (CK-2) Rel Index 1.1 (0-4) 05/10/17 21:01 Troponin T 0.019 ng/mL (0.00-0.029) 05/10/17 21:01 NT-Pro-B Natriuret Pep 5177 pg/mL (0-900) H 05/09/17 09:33 Total Protein 6.9 g/dL (6.3-8.2) 05/09/17 09:33 Albumin 3.7 g/dL (3.9-5) L 05/09/17 09:33 Albumin/Globulin Ratio 1.2 % 05/09/17 09:33 Lipase 21 units/L (13-60) 05/09/17 09:33
[2017-05-12 05:19] LABS: Anion Gap 18 mmol/L; BUN/Creatinine Ratio 12.14; Blood Urea Nitrogen 17 mg/dL (9-20); Calcium 8.8 mg/dL (8.4-10.2); Carbon Dioxide 25 mmol/L (22-30); Chloride 100.2 mmol/L (98-107); Glucose 87 mg/dL (75-100); Potassium 4.2 mmol/L (3.6-5.0); Sodium 139 mmol/L (137-145)
[2017-05-12 05:22] LABS: Hematocrit 45.5 % (35.5-45.6); Hemoglobin 14.4 gm/dl (11.8-15.2); Mean Corpuscular HGB Conc 32 % (32-34); Mean Corpuscular Hemoglobin 27 pg (28-32); Mean Corpuscular Volume 84 fl (84-94); Red Blood Count 5.42 M/mm3 (3.65-5.03); Red Cell Distribution Width 15.9 % (13.2-15.2); White Blood Count 7.4 K/mm3 (4.5-11.0)
[2017-05-12] MEDS: LASIX IV SCH (05:22)
[2017-05-12 05:26] LABS: Platelet Count 151 K/mm3 (140-440)
[2017-05-12] MEDS ORDERED: LEXISCAN IV ONE ×2 (08:45→08:51)
[2017-05-12] MEDS: K-DUR PO SCH (10:29)
[2017-05-12] MEDS: ZESTRIL PO SCH (10:29)
[2017-05-12] MEDS: ASPIRIN PO SCH (10:30)
[2017-05-12] MEDS: COREG PO SCH (10:30)
--- NOTE | 2017-05-12 11:38 | Progress Note ---
Assessment and Plan Acute systolic heart failure Non-ischemic cardiomyopathy LVEF 15-20% No ischemia by MPI Alcohol abuse Recommendations: Change IV lasix to po 40 mg once daily May go home cardiac craig Follow-up with [facility] in 1 week Alcohol abstinence Subjective Date of service: 05/12/17 Principal diagnosis: CHF Interval history: No events overnight Lexiscan performed - no complications Objective Vital Signs Temp Pulse Resp BP BP Pulse Ox 05/12/17 08:17 97.6 F 81 20 156/107 98 05/12/17 07:33 81 05/12/17 05:01 97.9 F 69 18 135/82 135/82 100 05/12/17 03:19 83 05/12/17 00:14 98.2 F 80 18 124/76 124/76 97 05/11/17 20:04 98.1 F 86 18 156/100 156/100 98 05/11/17 16:20 98.5 F 81 18 148/95 148/95 97 - Physical Examination General: No Apparent Distress HEENT: Positive: PERRL Neck: Positive: trachea midline Cardiac: Positive: Reg Rate and Rhythm Lungs: Positive: Normal Exam Neuro: Positive: Grossly Intact Extremities: Absent: edema - Labs and Meds CBC 05/12/17 Range/Units 04:15 WBC 7.4 (4.5-11.0) K/mm3 RBC 5.42 H (3.65-5.03) M/mm3 Hgb 14.4 (11.8-15.2) gm/dl Hct 45.5 (35.5-45.6) % Plt Count 151 (140-440) K/mm3 Comprehensive Metabolic Panel 05/12/17 Range/Units 04:15 Sodium 139 (137-145) mmol/L Potassium 4.2 (3.6-5.0) mmol/L Chloride 100.2 (98-107) mmol/L Carbon Dioxide 25 (22-30) mmol/L BUN 17 (9-20) mg/dL Creatinine 1.4 (0.8-1.5) mg/dL Glucose 87 (75-100) mg/dL Calcium 8.8 (8.4-10.2) mg/dL
--- NOTE | 2017-05-12 13:35 | Discharge Summary ---
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 Truong Vargas who presents with cp/sob. CXR reported as probable early CHF. Troponin and cardiac enzymes negative 3. Patient gives a history of father having heart problems in his early 50s. -Acute systolic heart failure, new onset: ECHO estimated EF 10-15%, Cardiology is following -Right leg swelling: I ordered venous doppler which was negative for DVT -Uncontrolled Hypertension with heart failure: diuresis -DVT prophylaxis: on sq lovenox "per Cardiology Recommendations: Change IV lasix to po 40 mg once daily May go home cardiac craig Follow-up with [facility] in 1 week Alcohol abstinence" Disposition: DC-01 TO HOME OR SELFCARE Time spent for discharge: 38 minutes Core Measure Documentation - Palliative Care Palliative Care/ Comfort Measures: Not Applicable - Core Measures Any of the following diagnoses?: none - VTE Discharge Requirements Deep Vein Thrombosis/Pulmonary Embolism Present on Admission: No Has pt received <5 days of overlap therapy or INR<2.0: No Anticoagulant overlap therapy prescribed at discharge: No Contraindication No Overlap Therapy order at DC: Not Indicated Exam - Physical Exam Narrative exam: GEN: nad a/o x 3 CVS: RRR normal s1s2 Lungs: bilateral crackles but good air entry b abd: soft ntnd gbs Ext: right leg slightly bigger than left, no tenderness Neuro: nonfocal - Constitutional Vitals: Temp Pulse Resp BP Pulse Ox 97.6 F 81 20 156/107 98 05/12/17 08:17 05/12/17 08:17 05/12/17 08:17 05/12/17 08:17 05/12/17 08:17 Plan Activity: advance as tolerated (no strenous activites until cleared by cardiology) Diet: low salt Follow up with: PADMINI TERAN MD [Primary Care Provider] - 3-5 Days TALHA BELTRAN MD [Staff Physician] - 7 Days Prescriptions: Aspirin [Adult Low Dose Aspirin EC] 81 mg PO QDAY #30 tab Carvedilol [Coreg] 6.25 mg PO BID #60 tablet Furosemide [Lasix TAB] 40 mg PO QDAY #30 tablet Nitroglycerin [Nitrostat] 0.4 mg SL .Q5MIN PRN #30 tablet PRN Reason: Chest Pain Potassium Chloride 20 meq PO BID #60 packet
[2017-05-12 14:06] VITALS: BP 151/101
--- NOTE | 2017-05-12 23:32 | Treadmill Report ---
ORDERING PHYSICIAN: Dr. Jones INDICATION FOR THE PROCEDURE: Cardiomyopathy, congestive heart failure. FINDINGS: There is no scintigraphic evidence of myocardial ischemia. There is evidence of a fixed inferior wall defect likely due to diaphragmatic attenuation. The left ventricular cavity is severely dilated. The left ventricular ejection fraction is measured at 24%. There is severe global left ventricular hypokinesis. CONCLUSION: 1. No scintigraphic evidence of myocardial ischemia. 2. Severe global left ventricular hypokinesis with severe dilatation of the left ventricle and an ejection fraction measured at 24%. 3. Findings are consistent with nonischemic cardiomyopathy. JOB# [id number] LEONELA/GABRIELLE
== END 2017-05-12 15:10 | disposition home or self-care (01) | DRG 293 ==
LOC: ED 08:48 → 4A 15:07
PROVIDERS: ADMIT Internal Medicine; ATTEND Internal Medicine
PROC: 4A02XM4 Measurement of Cardiac Total Activity, External Approach (ICD-10-PCS; principal; 2017-05-12)
DX: I11.0 Hypertensive heart disease with heart failure (principal); I50.21 Acute systolic (congestive) heart failure; I42.9 Cardiomyopathy, unspecified; F10.10 Alcohol abuse, uncomplicated; Z87.891 Personal history of nicotine dependence; Z82.49 Family history of ischemic heart disease and other diseases of the circulatory system
CPT/HCPCS: 36415; 71020; 76705; 78452; 80048; 80053; 82550; 82553; 83690; 83735; 83880; 84484; 85025; 85027; 85610; 85730; 93005; 93010; 93017; 93306; 96374; 96375; A9502; C9113; J0360; J1650; J1940; J2270; J2785

== ENCOUNTER 2018-04-22 10:08 | Emergency (ER) | payer OTHER ==
[2018-04-22 10:17] VITALS: BP 146/98
[2018-04-22] MEDS ORDERED: TORADOL IM ONE (11:16)
[2018-04-22] MEDS ORDERED: NORCO 5/325 PO ONE (11:16)
--- NOTE | 2018-04-22 11:18 | Emergency Department Report ---
Chief Complaint: Fall Stated Complaint: FALL Time Seen by Provider: 04/22/18 11:13 - HPI History of Present Illness: 52-year-old male presents the emergency department with complaint of right shoulder, left elbow, left knee and right hip, and low back pain after a deck he was standing on collapsed yesterday. It was about 6 feet in the air. He denies hitting his head or any loss of consciousness. He has generalized body soreness since that time. He has not taken anything for symptoms of her presentation. He has a past medical history of CHF. - ROS Review of Systems: Positive for arthralgia, back pain Negative for headache, numbness or paresthesias, problems with bowel or bladder - Exam Vital Signs: Vital Signs 04/22/18 10:13 Temperature 97.9 F Pulse Rate 91 H Respiratory 18 Rate Blood Pressure 146/98 O2 Sat by Pulse 98 Oximetry Physical Exam: Heart and lungs sounds are normal in auscultation. He has reproducible tenderness palpation to the right shoulder, left elbow and left knee but no instability to the joint seen. There are a few abrasions. MSE screening note: Focused history and physical exam performed. Due to findings the following was ordered: The patient will have an x-ray of the right shoulder, right hip, lumbar spine, left elbow and left knee. He has been given Toradol and [place] for discomfort. ED Disposition for MSE Condition: Stable Referrals: PRIMARY CARE, [Primary Care Provider] - 3-5 Days
--- NOTE | 2018-04-22 12:18 | XRay Report ---
LEFT ELBOW, 3 views: History: left elbow pain. The bony architecture is intact without evidence of fracture or dislocation. No significant soft tissue abnormality is seen. Large olecranon spur is noted. IMPRESSION: Left elbow within normal limits. Olecranon spur.
--- NOTE | 2018-04-22 12:18 | XRay Report ---
RIGHT HIP, 2 views: History: Right hip pain. The bony architecture is intact without evidence of fracture or dislocation. No significant soft tissue abnormality is seen. IMPRESSION: Normal right hip.
--- NOTE | 2018-04-22 12:19 | XRay Report ---
LEFT KNEE, 3 views: History: Left knee pain. The bony architecture is intact without evidence of fracture or dislocation. No significant soft tissue abnormality is seen. IMPRESSION: Normal left knee.
--- NOTE | 2018-04-22 12:20 | XRay Report ---
RIGHT SHOULDER, 3 VIEWS: HISTORY: right shoulder pain. Normal bone mineralization. There are mild osteoarthritic changes at the right shoulder. There is a subtle cortical deformity seen in the lateral humeral head on the external rotation view only. This may represent a nondisplaced avulsion injury. Please correlate with the patient. IMPRESSION: Osteoarthritis. Questionable avulsion injury as described. Please correlate with the image and the patient.
--- NOTE | 2018-04-22 12:22 | XRay Report ---
LUMBOSACRAL SPINE, 3 VIEWS: History: Low back pain. Findings: There is mild straightening of the lumbar vertebra. 5 mm anterolisthesis of L4 with respect to L5 is identified which appears to be secondary to degenerative facet arthropathy. The remaining lumbar vertebra are in normal alignment. No compression deformity or bone lesion is identified. Moderate to severe hypertrophic facet arthropathy is noted at L4-5 and L5-S1. Impression: Degenerative findings as described. No acute injury is identified.
--- NOTE | 2018-04-22 13:02 | Emergency Department Report ---
ED Fall HPI - General Chief Complaint: Fall Stated Complaint: FALL Time Seen by Provider: 04/22/18 11:13 Source: patient Mode of arrival: Ambulatory - History of Present Illness Initial Comments: 52-year-old male past medical history CHF, congestive heart failure presents with complaint of right shoulder pain and lower back pain and left knee pain and left elbow pain status post mechanical fall. Patient states he fell backward off of a porch last night at approximately 6 PM. Witnessed by family members. Patient denies any loss of consciousness or neck pain. Patient is currently awake alert and oriented 3 and ambulatory without assistance. Fully lucid. Denies involvement of alcohol or drugs. Primarily complaining of aching in his right shoulder and left knee. States that the pain medicine he was given earlier today while in ED has made him feel significantly better. Denies any chest pain abdominal pain nausea or blurry vision or headache. MD Complaint: fall -: Last night Fall From: other (6feet off pornch) When Fall Occurred: other Fall Witnessed: yes, by family Place Fall Occurred: home Loss of Consciousness: none Prolonged Down Time?: no Symptoms Prior to Fall: none Location - Extremities: Left: Elbow, Knee, Right: Shoulder Severity: moderate Severity scale (0 -10): 4 Quality: aching Context: tripped/slipped Associated Symptoms: denies - Related Data Previous Rx's Medication Instructions Recorded Last Taken Type Aspirin [Adult Low Dose Aspirin EC] 81 mg PO QDAY #30 tab 05/12/17 Unknown Rx Carvedilol [Coreg] 6.25 mg PO BID #60 tablet 05/12/17 Unknown Rx Furosemide [Lasix TAB] 40 mg PO QDAY #30 tablet 05/12/17 Unknown Rx Lisinopril [Zestril] 40 mg PO DAILY #30 05/12/17 05/09/17 Rx Nitroglycerin [Nitrostat] 0.4 mg SL .Q5MIN PRN #30 tablet 05/12/17 Unknown Rx Potassium Chloride 20 meq PO BID #60 packet 05/12/17 Unknown Rx HYDROcodone/APAP 5-325 [Petty 1 each PO Q6HR PRN #12 tablet 04/22/18 Unknown Rx 5/325] Allergies Allergy/AdvReac Type Severity Reaction Status Date / Time No Known Allergies Allergy Verified 04/22/18 10:13 ED Review of Systems ROS: Stated complaint: FALL Other details as noted in HPI Constitutional: denies: chills, fever Eyes: denies: eye pain, eye discharge, vision change ENT: denies: ear pain, throat pain Respiratory: denies: cough, shortness of breath, wheezing Cardiovascular: denies: chest pain, palpitations Endocrine: no symptoms reported Gastrointestinal: denies: abdominal pain, nausea, diarrhea Genitourinary: denies: urgency, dysuria Musculoskeletal: as per HPI, back pain. denies: joint swelling, arthralgia Skin: denies: rash, lesions Neurological: denies: headache, weakness, paresthesias Psychiatric: denies: anxiety, depression Hematological/Lymphatic: denies: easy bleeding, easy bruising ED Past Medical Hx - Past Medical History Hx Hypertension: Yes Hx Congestive Heart Failure: Yes Hx Diabetes: No Hx Asthma: No Hx COPD: No Hx HIV: No - Social History Smoking Status: Never Smoker Substance Use Type: None - Medications Home Medications: Home Medications Medication Instructions Recorded Confirmed Last Taken Type Aspirin [Adult Low Dose Aspirin EC] 81 mg PO QDAY #30 tab 05/12/17 Unknown Rx Carvedilol [Coreg] 6.25 mg PO BID #60 tablet 05/12/17 Unknown Rx Furosemide [Lasix TAB] 40 mg PO QDAY #30 tablet 05/12/17 Unknown Rx Lisinopril [Zestril] 40 mg PO DAILY #30 05/12/17 05/09/17 05/09/17 Rx Nitroglycerin [Nitrostat] 0.4 mg SL .Q5MIN PRN #30 tablet 05/12/17 Unknown Rx Potassium Chloride 20 meq PO BID #60 packet 05/12/17 Unknown Rx HYDROcodone/APAP 5-325 [[place] 1 each PO Q6HR PRN #12 tablet 04/22/18 Unknown Rx 5/325] ED Physical Exam - General Limitations: No Limitations General appearance: alert, in no apparent distress - Head Head exam: Present: atraumatic, normocephalic - Eye Eye exam: Present: normal appearance, PERRL, EOMI - ENT ENT exam: Present: mucous membranes moist - Neck Neck exam: Present: normal inspection, full ROM (neck flexion and extension clinically intact.) - Respiratory Respiratory exam: Present: normal lung sounds bilaterally, other (no chest wall ecchymosis). Absent: respiratory distress - Cardiovascular Cardiovascular Exam: Present: regular rate, normal rhythm. Absent: systolic murmur, diastolic murmur, rubs, gallop - GI/Abdominal GI/Abdominal exam: Present: soft (abdomen soft nontender nondistended no ecchymosis), normal bowel sounds - Rectal Rectal exam: Present: deferred - Extremities Exam Extremities exam: Present: normal inspection, full ROM (range of motion right shoulder fully intact. Left knee flexion and extension fully intact) - Expanded Upper Extremity Exam Right Shoulder Exam: Present: normal inspection, full ROM, tenderness (slight tenderness when patient abducts his arm at 90. Patient has full range of motion otherwise) Upper Arm exam: Present: normal inspection, full ROM Elbow exam: Present: normal inspection, full ROM Forearm Wrist exam: Present: normal inspection, full ROM Hand Wrist exam: Present: normal inspection, full ROM Neuro motor exam: Present: wrist extension intact, thumb opposition intact, thumb IP flexion intact, thumb adduction intact, fingers 2-5 abduction intact Vascular: Present: normal capillary refill, radial pulse, brachial pulse, ulnar pulse - Expanded Lower Extremity Exam Left Knee exam: Present: normal inspection, full ROM Lower Leg exam: Present: normal inspection, full ROM - Back Exam Back exam: Present: normal inspection (no ecchymosis, no midline tenderness cervical thoracic or lumbar spine, some paraspinal lumbar region tenderness), full ROM - Neurological Exam Neurological exam: Present: alert, oriented X3, CN II-XII intact, normal gait - Psychiatric Psychiatric exam: Present: normal affect, normal mood - Skin Skin exam: Present: warm, dry, intact, normal color. Absent: rash ED Course Vital Signs 04/22/18 04/22/18 04/22/18 10:13 11:27 11:28 Temperature 97.9 F Pulse Rate 91 H Respiratory 18 16 16 Rate Blood Pressure 146/98 O2 Sat by Pulse 98 Oximetry ED Medical Decision Making - Medical Decision Making A/P: Fall injury, musculoskeletal pain 1-x-ray shows some degenerative changes. Questionable avulsion fracture right shoulder, may be old. Patient has full range of motion and minimal pain on palpation. Neurovascular exam right upper extremity clinically intact. Distal strength 5 out of 5 bilateral upper and lower extremities. Will provide sling. I advised patient uses intermittently. 2-short course of Petty 3-follow-up with primary care and orthopedics. 4- NEXUS negative Critical care attestation.: If time is entered above; I have spent that time in minutes in the direct care of this critically ill patient, excluding procedure time. ED Disposition Clinical Impression: Musculoskeletal pain Fall with no significant injury Qualifiers: Encounter type: initial encounter Qualified Code(s): W19.XXXA - Unspecified fall, initial encounter Disposition: TO HOME OR SELFCARE Is pt being admited?: No Does the pt Need Aspirin: No Condition: Stable Instructions: Shoulder Sprain (ED), Arthralgia (ED), Musculoskeletal Pain (ED) , RICE Therapy (ED) Prescriptions: HYDROcodone/APAP 5-325 [Petty 5/325] 1 each PO Q6HR PRN #12 tablet PRN Reason: Pain Referrals: [facility] [Outside] - 3-5 Days [facility] [Outside] - 3-5 Days VIDYA IVY MD [Staff Physician] - 3-5 Days Forms: Accompanied Note Time of Disposition: 13:02
== END 2018-04-22 13:10 | disposition home or self-care (01) ==
LOC: ED 10:08
DX: M79.1 Myalgia (principal); I10 Essential (primary) hypertension; I50.9 Heart failure, unspecified; Z79.82 Long term (current) use of aspirin; W18.39XA Other fall on same level, initial encounter; Y93.89 Activity, other specified; Y99.8 Other external cause status; Y92.099 Unspecified place in other non-institutional residence as the place of occurrence of the external cause
CPT/HCPCS: 72100; 73030; 73080; 73502; 73562; 96372; 99284; J1885

== ENCOUNTER 2019-04-11 08:16 | Emergency (ER) | payer OTHER ==
[2019-04-11 09:04] LABS: Basophils % (Auto) 0.6 % (0.0-1.8); Eosinophils # (Auto) 0.1 K/mm3 (0.0-0.4); Eosinophils % (Auto) 2.4 % (0.0-4.3); Hematocrit 40.5 % (35.5-45.6); Hemoglobin 13.4 gm/dl (11.8-15.2); Lymphocytes # (Auto) 1.3 K/mm3 (1.2-5.4); Lymphocytes % (Auto) 28.3 % (13.4-35.0); Mean Corpuscular HGB Conc 33 % (32-34); Mean Corpuscular Volume 83 fl (84-94); Monocytes # (Auto) 0.5 K/mm3 (0.0-0.8); Monocytes % (Auto) 10.1 % (0.0-7.3); Platelet Count 117 K/mm3 (140-440); Red Cell Distribution Width 16.4 % (13.2-15.2)
--- NOTE | 2019-04-11 09:21 | Emergency Department Report ---
ED GI Bleed HPI - General Chief complaint: Abdominal Pain Stated complaint: RECTUM BLEEDING/HEART PATIENT Time Seen by Provider: 04/11/19 09:16 Source: patient Mode of arrival: Ambulatory Limitations: No Limitations - History of Present Illness Initial comments: 53-year-old male who presents to the emergency department for evaluation of rectal bleeding. He is here with his . His shows me his cell phone picture of blood with minimal clot in the toilet bowl. The blood is of small quantity. Patient is not having any active bleeding now. Doesn't have abdominal pain. He's never had a colonoscopy. He denies vomiting or nausea. Review patient's medications reveals multiple medicines for hypertension and aspirin only. He is not on an anticoagulant nor Plavix. MD complaint: gross hematochezia -: This morning Severity scale (0 -10): 0 Quality: painless Improves with: none Worsens with: none Associated Symptoms: denies other symptoms - Related Data Previous Rx's Medication Instructions Recorded Last Taken Type Aspirin [Adult Low Dose Aspirin EC] 81 mg PO QDAY #30 tab 05/12/17 Unknown Rx Carvedilol [Coreg] 6.25 mg PO BID #60 tablet 05/12/17 Unknown Rx Furosemide [Lasix TAB] 40 mg PO QDAY #30 tablet 05/12/17 Unknown Rx Lisinopril [Zestril] 40 mg PO DAILY #30 05/12/17 05/09/17 Rx Nitroglycerin [Nitrostat] 0.4 mg SL .Q5MIN PRN #30 tablet 05/12/17 Unknown Rx Potassium Chloride 20 meq PO BID #60 packet 05/12/17 Unknown Rx HYDROcodone/APAP 5-325 [[place] 1 each PO Q6HR PRN #12 tablet 04/22/18 Unknown Rx 5/325] Furosemide [Lasix TAB] 40 mg PO QDAY #14 tablet 04/11/19 Unknown Rx Allergies Allergy/AdvReac Type Severity Reaction Status Date / Time No Known Allergies Allergy Verified 04/22/18 10:13 ED Review of Systems ROS: Stated complaint: RECTUM BLEEDING/HEART PATIENT Other details as noted in HPI Constitutional: denies: chills, fever Eyes: denies: eye pain, eye discharge, vision change ENT: denies: ear pain, throat pain Respiratory: denies: cough, shortness of breath, wheezing Cardiovascular: denies: chest pain, palpitations Endocrine: no symptoms reported Gastrointestinal: as per HPI, hematochezia. denies: abdominal pain, nausea, vomiting, diarrhea, constipation, hematemesis, melena Genitourinary: denies: urgency, dysuria Musculoskeletal: denies: back pain, joint swelling, arthralgia Skin: denies: rash, lesions Neurological: denies: headache, weakness, paresthesias Psychiatric: denies: anxiety, depression Hematological/Lymphatic: denies: easy bleeding, easy bruising ED Past Medical Hx - Past Medical History Previous Medical History?: Yes Hx Hypertension: Yes Hx Congestive Heart Failure: Yes Hx Diabetes: No Hx Asthma: No Hx COPD: No Hx HIV: No - Surgical History Past Surgical History?: No - Social History Smoking Status: Never Smoker Substance Use Type: Alcohol - Medications Home Medications: Home Medications Medication Instructions Recorded Confirmed Last Taken Type Aspirin [Adult Low Dose Aspirin EC] 81 mg PO QDAY #30 tab 05/12/17 Unknown Rx Carvedilol [Coreg] 6.25 mg PO BID #60 tablet 05/12/17 Unknown Rx Furosemide [Lasix TAB] 40 mg PO QDAY #30 tablet 05/12/17 Unknown Rx Lisinopril [Zestril] 40 mg PO DAILY #30 05/12/17 05/09/17 05/09/17 Rx Nitroglycerin [Nitrostat] 0.4 mg SL .Q5MIN PRN #30 tablet 05/12/17 Unknown Rx Potassium Chloride 20 meq PO BID #60 packet 05/12/17 Unknown Rx HYDROcodone/APAP 5-325 [[place] 1 each PO Q6HR PRN #12 tablet 04/22/18 Unknown Rx 5/325] Furosemide [Lasix TAB] 40 mg PO QDAY #14 tablet 04/11/19 Unknown Rx ED Physical Exam - General Limitations: No Limitations General appearance: alert, in no apparent distress - Head Head exam: Present: atraumatic, normocephalic - Eye Eye exam: Present: normal appearance - ENT ENT exam: Present: mucous membranes moist - Neck Neck exam: Present: normal inspection - Respiratory Respiratory exam: Present: normal lung sounds bilaterally. Absent: respiratory distress - Cardiovascular Cardiovascular Exam: Present: regular rate, normal rhythm. Absent: systolic murmur, diastolic murmur, rubs, gallop - GI/Abdominal GI/Abdominal exam: Present: soft, normal bowel sounds. Absent: distended, tenderness, guarding, rebound, rigid - Rectal Rectal exam: Present: deferred, other (small amount of gross blood on digital exam. Large prostate. No mass evident.) - Extremities Exam Extremities exam: Present: normal inspection - Back Exam Back exam: Present: normal inspection - Neurological Exam Neurological exam: Present: alert, oriented X3 - Psychiatric Psychiatric exam: Present: normal affect, normal mood - Skin Skin exam: Present: warm, dry, intact, normal color. Absent: rash ED Course Vital Signs 04/11/19 04/11/19 04/11/19 08:34 09:03 09:04 Temperature 97.9 F 98.1 F Pulse Rate 85 78 Respiratory 18 18 18 Rate Blood Pressure 139/83 Blood Pressure 139/91 [Left] O2 Sat by Pulse 98 96 96 Oximetry - Reevaluation(s) Reevaluation #1: No recurrent bleeding. Patient requests discharge. He also requests a new although his Lasix as he is out. 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 Aspirin will be held considering his bleeding and slightly low platelet count. 04/11/19 10:58 ED Medical Decision Making - Lab Data Result diagrams: 04/11/19 08:53 04/11/19 08:53 Laboratory Results - last 24 hr 04/11/19 08:53 WBC 4.5 RBC 4.90 Hgb 13.4 Hct 40.5 MCV 83 L MCH 27 L MCHC 33 RDW 16.4 H Plt Count 117 L Lymph % (Auto) 28.3 [place] % (Auto) 10.1 H Eos % (Auto) 2.4 Baso % (Auto) 0.6 Lymph # 1.3 [place] # 0.5 Eos # 0.1 Baso # 0.0 Seg Neutrophils % 58.6 Seg Neutrophils # 2.6 Laboratory Results - last 24 hr 04/11/19 04/11/19 08:53 08:53 WBC 4.5 RBC 4.90 Hgb 13.4 Hct 40.5 MCV 83 L MCH 27 L MCHC 33 RDW 16.4 H Plt Count 117 L Lymph % (Auto) 28.3 [place] % (Auto) 10.1 H Eos % (Auto) 2.4 Baso % (Auto) 0.6 Lymph # 1.3 Franklin # 0.5 Eos # 0.1 Baso # 0.0 Seg Neutrophils % 58.6 Seg Neutrophils # 2.6 Sodium 138 Potassium 4.1 Chloride 102.5 Carbon Dioxide 22 Anion Gap 18 BUN 12 Creatinine 1.1 Estimated GFR > 60 BUN/Creatinine Ratio 11 Glucose 108 H Calcium 8.9 Critical care attestation.: If time is entered above; I have spent that time in minutes in the direct care of this critically ill patient, excluding procedure time. ED Disposition Clinical Impression: Hematochezia, Thrombocytopenia Disposition: TO HOME OR SELFCARE Is pt being admited?: No Does the pt Need Aspirin: No Condition: Stable Instructions: Rectal Bleeding (ED), Thrombocytopenia (ED) Additional Instructions: One of your blood cells called a platelet is low. This may cause increased bleeding. We will need to hold aspirin until after your evaluation by the GI doctor and/or Dr. Jones. I am also going to refer her to a blood count Dr. Perez. Stop aspirin for now. Return to the emergency department any signif icant bleeding or acute change. Prescriptions: Furosemide [Lasix TAB] 40 mg PO QDAY #14 tablet Referrals: KALPESH PEREZ DO [Staff Physician] - 3-5 Days [facility] [Provider Group] - 24 Hours TALHA JONES MD [Staff Physician] - 2-3 Days Time of Disposition: 11:02
[2019-04-11 09:27] LABS: BUN/Creatinine Ratio 11; Blood Urea Nitrogen 12 mg/dL (9-20); Calcium 8.9 mg/dL (8.4-10.2); Hemolysis Index 8
[2019-04-11 11:21] VITALS: BP 151/95
== END 2019-04-11 11:24 | disposition home or self-care (01) ==
LOC: ED 08:16
DX: K92.1 Melena (principal); D69.6 Thrombocytopenia, unspecified; I11.0 Hypertensive heart disease with heart failure; I50.9 Heart failure, unspecified
CPT/HCPCS: 36415; 80048; 85025; 93005; 93010

== ENCOUNTER 2019-10-13 14:03 | Inpatient (IN) | payer OTHER ==
--- NOTE | 2019-10-13 14:47 | Cat Scan Report ---
CT HEAD WITHOUT CONTRAST INDICATION / CLINICAL INFORMATION: Stroke symptoms. TECHNIQUE: All CT scans at this location are performed using CT dose reduction for ALARA by means of automated e xposure control. COMPARISON: None available. FINDINGS: HEMORRHAGE: No evidence of intracranial hemorrhage or extra-axial fluid collection. EXTRA-AXIAL SPACES: Cortical sulci, sylvian fissures and basilar cisterns have an unremarkable appear ance. VENTRICULAR SYSTEM: The ventricular system is of normal size and configuration. CEREBRAL PARENCHYMA: No areas of abnormal brain parenchymal attenuation are identified. There is no i ndication of recent infarction. MIDLINE SHIFT OR HERNIATION: There is no mass effect. CEREBELLUM / BRAINSTEM: Brainstem and cerebellum have an unremarkable appearance. INTRACRANIAL VESSELS:No abnormalities are identified on this noncontrast head CT. ORBITS: visualized portions of the orbits have an unremarkable appearance. SOFT TISSUES of HEAD: No significant abnormality. CALVARIUM: Evaluation of bone windows reveals no abnormalities. Incidental note is made of ossificati on of the falx in the anterior interhemispheric fissure. PARANASAL SINUSES / MASTOID AIR CELLS: Paranasal sinuses are free from inflammatory mucosal disease. Mastoid air cells are normally pneumatized. ADDITIONAL FINDINGS: None. IMPRESSION: 1. Negative head CT without contrast. Code stroke patient: I called a report of this study to Dr. Licea at [facility] emergency departme nt at about 1340 Central standard time. Signer Name: Kavon Mukherjee MD Signed: 10/13/2019 2:43 PM Workstation Name: [id number]
[2019-10-13 14:57] LABS: Creatine Kinase MB 2.1 ng/mL (0.0-4.0)
[2019-10-13 14:58] LABS: Albumin 3.9 g/dL (3.9-5); Calcium 9.1 mg/dL (8.4-10.2)
[2019-10-13 15:00] LABS: Basophils % (Auto) 0.6 % (0.0-1.8); Eosinophils # (Auto) 0.1 K/mm3 (0.0-0.4); Eosinophils % (Auto) 1.6 % (0.0-4.3); Hematocrit 37.7 % (35.5-45.6); Hemoglobin 11.7 gm/dl (11.8-15.2); Lymphocytes # (Auto) 1.4 K/mm3 (1.2-5.4); Lymphocytes % (Auto) 18.5 % (13.4-35.0); Mean Corpuscular HGB Conc 31 % (32-34); Mean Corpuscular Volume 74 fl (84-94); Monocytes # (Auto) 0.7 K/mm3 (0.0-0.8); Monocytes % (Auto) 8.6 % (0.0-7.3); Platelet Count 144 K/mm3 (140-440); Red Cell Distribution Width 19.4 % (13.2-15.2)
[2019-10-13 15:16] LABS: Alanine Aminotransferase 15 units/L (7-56); Albumin 4.1 g/dL (3.9-5); BUN/Creatinine Ratio 13; Blood Urea Nitrogen 20 mg/dL (9-20); Calcium 9.3 mg/dL (8.4-10.2); Hemolysis Index 8
[2019-10-13 15:18] LABS: Bilirubin,Direct < 0.2 mg/dL (0-0.2)
[2019-10-13 15:28] LABS: INR 1.07 (0.87-1.13); Partial Thromboplastin Time 24.4 Sec. (24.2-36.6)
[2019-10-13 15:29] LABS: Thrombin Time 16.1 Sec. (15.1-19.6)
[2019-10-13 15:50] LABS: Chol/HDL Ratio 2.02 %
[2019-10-13 16:07] LABS: Bilirubin,Urine NEG (Negative); Blood,Urine NEG (Negative); Color,Urine Yellow (Yellow); Mucus,Urine FEW /HPF; Urobilinogen,Urine < 2.0 mg/dL (<2.0)
[2019-10-13 16:14] LABS: Amphetamine Screen,Urine PRESUMPTIVE NEGATIVE; Benzodiazepines Screen,Urine PRESUMPTIVE NEGATIVE; Cannabinoid Screen,Urine PRESUMPTIVE NEGATIVE; Cocaine Screen,Urine PRESUMPTIVE NEGATIVE; Methadone Screen,Urine PRESUMPTIVE NEGATIVE; Opiate Screen,Urine PRESUMPTIVE NEGATIVE
--- NOTE | 2019-10-13 16:17 | Emergency Department Report ---
ED Neuro Deficit HPI - General Chief Complaint: Neuro Symptoms/Deficit Stated Complaint: NEURO ISSUES Time Seen by Provider: 10/13/19 14:05 Source: EMS Mode of arrival: Stretcher Limitations: Altered Mental Status - History of Present Illness Initial Comments: This is a 54-year-old male nontoxic, well nourished in appearance, no acute signs of distress presents to the ED with c/o of right facial drooping and slightly altered mental status. stated that well-known about was last night around 10 PM. said that patient started to have altered mental status of speaking abnormal with right facial drooping as well as making any sense. Patient and denies any trauma to the head. Patient and denies any neck pain, fever, chills, nausea, vomiting, headache, stiff neck, numbness or tingling. Patient and denies any drug allergies. -: days(s) (1) Location: speech, right face Presenting Symptoms: Present: Facial Droop/Numbness, Unable to Speak Clearly. Absent: Weak/Paralyzed One Side, Blurred/Loss of Vision, Altered Mental Status Place: home Severity: mild Quality: weak Improves With: none Worsens With: none On Anticoagulants: No Context: sudden onset Associated Symptoms: confusion, weakness. denies: chest pain, cough, diaphoresis, fever/chills, headaches, loss of appetite, malise, nausea/vomiting, vertigo, seizures, shortness of breath, syncope - Related Data Home Medications: Home Medications Medication Instructions Recorded Confirmed Last Taken Doxazosin [Cardura] 4 mg PO BID 04/11/19 04/11/19 Unknown NIFEdipine XL [Procardia Xl] 90 mg PO QDAY 04/11/19 04/11/19 Unknown carvediloL [Coreg] 12.5 mg PO BID 04/11/19 04/11/19 Unknown Previous Rx's Medication Instructions Recorded Last Taken Type Aspirin [Adult Low Dose Aspirin EC] 81 mg PO QDAY #30 tab 05/12/17 Unknown Rx Furosemide [Lasix TAB] 40 mg PO QDAY #30 tablet 05/12/17 Unknown Rx Furosemide [Lasix TAB] 40 mg PO QDAY #14 tablet 04/11/19 Unknown Rx Allergies/Adverse Reactions: Allergies Allergy/AdvReac Type Severity Reaction Status Date / Time No Known Allergies Allergy Verified 04/22/18 10:13 ED Review of Systems ROS: Stated complaint: NEURO ISSUES Other details as noted in HPI Constitutional: denies: chills, fever Eyes: denies: eye pain, eye discharge, vision change ENT: denies: ear pain, throat pain Respiratory: denies: cough, shortness of breath, wheezing Cardiovascular: denies: chest pain, palpitations Endocrine: no symptoms reported Gastrointestinal: denies: abdominal pain, nausea, vomiting, diarrhea Genitourinary: denies: urgency, dysuria Musculoskeletal: denies: back pain, joint swelling, arthralgia Skin: denies: rash, lesions Neurological: weakness, confusion. denies: headache, paresthesias, abnormal gait, vertigo Psychiatric: denies: anxiety, depression Hematological/Lymphatic: denies: easy bleeding, easy bruising ED Past Medical Hx - Past Medical History Previous Medical History?: Yes Hx Hypertension: Yes Hx Congestive Heart Failure: Yes Hx Diabetes: No Hx Asthma: No Hx COPD: No Hx HIV: No - Surgical History Past Surgical History?: No - Social History Smoking Status: Never Smoker Substance Use Type: Alcohol - Medications Home Medications: Home Medications Medication Instructions Recorded Confirmed Last Taken Type Aspirin [Adult Low Dose Aspirin EC] 81 mg PO QDAY #30 tab 05/12/17 04/11/19 Unknown Rx Furosemide [Lasix TAB] 40 mg PO QDAY #30 tablet 05/12/17 04/11/19 Unknown Rx Doxazosin [Cardura] 4 mg PO BID 04/11/19 04/11/19 Unknown History Furosemide [Lasix TAB] 40 mg PO QDAY #14 tablet 04/11/19 Unknown Rx NIFEdipine XL [Procardia Xl] 90 mg PO QDAY 04/11/19 04/11/19 Unknown History carvediloL [Coreg] 12.5 mg PO BID 04/11/19 04/11/19 Unknown History ED Neuro Physical Exam - General Limitations: Altered Mental Status General appearance: alert Suspected Stroke: Yes - Head Head exam: Present: atraumatic, normocephalic - Eye Eye exam: Present: normal appearance, PERRL, EOMI - ENT ENT exam: Present: normal exam - Neck Neck exam: Present: normal inspection, full ROM. Absent: tenderness, meningismus, lymphadenopathy - Respiratory Respiratory exam: Present: normal lung sounds bilaterally. Absent: respiratory distress, wheezes, rales, rhonchi, stridor, chest wall tenderness, accessory muscle use, decreased breath sounds, prolonged expiratory - Cardiovascular Cardiovascular Exam: Present: regular rate, normal rhythm, normal heart sounds. Absent: irregular rhythm, systolic murmur, diastolic murmur, rubs, gallop - GI/Abdominal GI/Abdominal exam: Present: soft. Absent: distended, tenderness - Extremities Exam Extremities exam: Present: normal inspection, full ROM, normal capillary refill. Absent: tenderness - Back Exam Back exam: Present: normal inspection, full ROM. Absent: tenderness, CVA tenderness (R), CVA tenderness (L), muscle spasm, paraspinal tenderness, ve rtebral tenderness, rash noted - Neurological Exam Neurological exam: Present: alert. Absent: oriented X3 - NIHSS Assessment Interval: 24 hours post onset of symptoms +-20 minutes 1a. Level of Consciousness: alert/keenly responsive 1b. LOC Questions: aphasic 1c. LOC Commands: performs 1 task correctly 2. Best Gaze: normal 3. Visual: no visual loss 4. Facial Palsy: minor paralysis 5b. Motor Arm Right: no drift 5a. Motor Arm Left: no drift 6a. Motor Leg Left: no drift 6b. Motor Leg Right: no drift 7. Limb Ataxia: absent 8. Sensory: normal 9. Best Language: mild/moderate aphasia 10. Dysarthria: normal 11. Extinction/Inattention: no abnormality Total Score: 5 Stroke Severity: Moderate Stroke - Skin Skin exam: Present: warm, dry, intact, normal color. Absent: rash ED Course Vital Signs 10/13/19 10/13/19 10/13/19 14:22 15:00 16:56 Temperature 98.7 F Pulse Rate 93 H 85 Respiratory 16 Rate Blood Pressure 166/116 163/121 [Left] O2 Sat by Pulse 99 99 Oximetry - Lab Data Result diagrams: 10/13/19 14:27 10/13/19 14:43 Lab Results 10/13/19 10/13/19 10/13/19 Range/Units 14:27 14:27 14:27 WBC 7.7 (4.5-11.0) K/mm3 RBC 5.10 H (3.65-5.03) M/mm3 Hgb 11.7 L (11.8-15.2) gm/dl Hct 37.7 (35.5-45.6) % MCV 74 L (84-94) fl MCH 23 L (28-32) pg MCHC 31 L (32-34) % RDW 19.4 H (13.2-15.2) % Plt Count 144 (140-440) K/mm3 Lymph % (Auto) 18.5 (13.4-35.0) % [place] % (Auto) 8.6 H (0.0-7.3) % Eos % (Auto) 1.6 (0.0-4.3) % Baso % (Auto) 0.6 (0.0-1.8) % Lymph # 1.4 (1.2-5.4) K/mm3 [place] # 0.7 (0.0-0.8) K/mm3 Eos # 0.1 (0.0-0.4) K/mm3 Baso # 0.0 (0.0-0.1) K/mm3 Seg Neutrophils % 70.7 H (40.0-70.0) % Seg Neutrophils # 5.4 (1.8-7.7) K/mm3 PT 13.8 (12.2-14.9) Sec. INR 1.07 (0.87-1.13) APTT 24.4 (24.2-36.6) Sec. Thrombin Time 16.1 (15.1-19.6) Sec. Sodium 139 (137-145) mmol/L Potassium 4.5 (3.6-5.0) mmol/L Chloride 104.1 (98-107) mmol/L Carbon Dioxide 22 (22-30) mmol/L Anion Gap 17 mmol/L BUN 19 (9-20) mg/dL Creatinine 1.5 (0.8-1.5) mg/dL Estimated GFR 59 ml/min BUN/Creatinine Ratio 13 % Glucose 109 H (75-100) mg/dL Calcium 9.1 (8.4-10.2) mg/dL Total Bilirubin 0.60 (0.1-1.2) mg/dL Direct Bilirubin (0-0.2) mg/dL Indirect Bilirubin mg/dL AST 19 (5-40) units/L ALT 15 (7-56) units/L Alkaline Phosphatase 45 (35-129) units/L Total Creatine Kinase 120 (55-170) units/L CK-MB (CK-2) 2.1 (0.0-4.0) ng/mL CK-MB (CK-2) Rel Index 1.7 (0-4) Troponin T 0.062 H (0.00-0.029) ng/mL Total Protein 7.2 (6.3-8.2) g/dL Albumin 3.9 (3.9-5) g/dL Albumin/Globulin Ratio 1.2 % Triglycerides 122 (2-149) mg/dL Cholesterol 172 (50-199) mg/dL LDL Cholesterol Direct 77 (50-130) mg/dL HDL Cholesterol 85 H (40-59) mg/dL Cholesterol/HDL Ratio 2.02 % Urine Color (Yellow) Urine Turbidity (Clear) Urine pH (5.0-7.0) Ur Specific [place] (1.003-1.030) Urine Protein (Negative) mg/dL Urine Glucose (UA) (Negative) mg/dL Urine Ketones (Negative) mg/dL Urine Blood (Negative) Urine Nitrite (Negative) Urine Bilirubin (Negative) Urine Urobilinogen (<2.0) mg/dL Ur Leukocyte Esterase (Negative) Urine WBC (Auto) (0.0-6.0) /HPF Urine RBC (Auto) (0.0-6.0) /HPF U Epithel Cells (Auto) (0-13.0) /HPF Urine Mucus /HPF Urine Opiates Screen Urine Methadone Screen Ur Barbiturates Screen Ur Phencyclidine Scrn Ur Amphetamines Screen U Benzodiazepines Scrn Urine Cocaine Screen U Marijuana (THC) Screen Drugs of Abuse Note Blood Type Antibody Screen 10/13/19 10/13/19 10/13/19 Range/Units 14:27 14:43 Unknown WBC (4.5-11.0) K/mm3 RBC (3.65-5.03) M/mm3 Hgb (11.8-15.2) gm/dl Hct (35.5-45.6) % MCV (84-94) fl MCH (28-32) pg MCHC (32-34) % RDW (13.2-15.2) % Plt Count (140-440) K/mm3 Lymph % (Auto) (13.4-35.0) % [place] % (Auto) (0.0-7.3) % Eos % (Auto) (0.0-4.3) % Baso % (Auto) (0.0-1.8) % Lymph # (1.2-5.4) K/mm3 [place] # (0.0-0.8) K/mm3 Eos # (0.0-0.4) K/mm3 Baso # (0.0-0.1) K/mm3 Seg Neutrophils % (40.0-70.0) % Seg Neutrophils # (1.8-7.7) K/mm3 PT (12.2-14.9) Sec. INR (0.87-1.13) APTT (24.2-36.6) Sec. Thrombin Time (15.1-19.6) Sec. Sodium 135 L (137-145) mmol/L Potassium 4.5 (3.6-5.0) mmol/L Chloride 101.6 (98-107) mmol/L Carbon Dioxide 18 L (22-30) mmol/L Anion Gap 20 mmol/L BUN 20 (9-20) mg/dL Creatinine 1.5 (0.8-1.5) mg/dL Estimated GFR 59 ml/min BUN/Creatinine Ratio 13 % Glucose 105 H (75-100) mg/dL Calcium 9.3 (8.4-10.2) mg/dL Total Bilirubin 0.60 (0.1-1.2) mg/dL Direct Bilirubin < 0.2 (0-0.2) mg/dL Indirect Bilirubin 0.4 mg/dL AST 18 (5-40) units/L ALT 15 (7-56) units/L Alkaline Phosphatase 47 (35-129) units/L Total Creatine Kinase (55-170) units/L CK-MB (CK-2) (0.0-4.0) ng/mL CK-MB (CK-2) Rel Index (0-4) Troponin T (0.00-0.029) ng/mL Total Protein 7.0 (6.3-8.2) g/dL Albumin 4.1 (3.9-5) g/dL Albumin/Globulin Ratio 1.4 % Triglycerides (2-149) mg/dL Cholesterol (50-199) mg/dL LDL Cholesterol Direct (50-130) mg/dL HDL Cholesterol (40-59) mg/dL Cholesterol/HDL Ratio % Urine Color Yellow (Yellow) Urine Turbidity Clear (Clear) Urine pH 5.0 (5.0-7.0) Ur Specific [place] 1.019 (1.003-1.030) Urine Protein 30 mg/dl (Negative) mg/dL Urine Glucose (UA) Neg (Negative) mg/dL Urine Ketones Neg (Negative) mg/dL Urine Blood Neg (Negative) Urine Nitrite Neg (Negative) Urine Bilirubin Neg (Negative) Urine Urobilinogen < 2.0 (<2.0) mg/dL Ur Leukocyte Esterase Neg (Negative) Urine WBC (Auto) 1.0 (0.0-6.0) /HPF Urine RBC (Auto) 1.0 (0.0-6.0) /HPF U Epithel Cells (Auto) < 1.0 (0-13.0) /HPF Urine Mucus Few /HPF Urine Opiates Screen Urine Methadone Screen Ur Barbiturates Screen Ur Phencyclidine Scrn Ur Amphetamines Screen U Benzodiazepines Scrn Urine Cocaine Screen U Marijuana (THC) Screen Drugs of Abuse Note Blood Type O POSITIVE Antibody Screen Negative 10/13/19 Range/Units Unknown WBC (4.5-11.0) K/mm3 RBC (3.65-5.03) M/mm3 Hgb (11.8-15.2) gm/dl Hct (35.5-45.6) % MCV (84-94) fl MCH (28-32) pg MCHC (32-34) % RDW (13.2-15.2) % Plt Count (140-440) K/mm3 Lymph % (Auto) (13.4-35.0) % [place] % (Auto) (0.0-7.3) % Eos % (Auto) (0.0-4.3) % Baso % (Auto) (0.0-1.8) % Lymph # (1.2-5.4) K/mm3 [place] # (0.0-0.8) K/mm3 Eos # (0.0-0.4) K/mm3 Baso # (0.0-0.1) K/mm3 Seg Neutrophils % (40.0-70.0) % Seg Neutrophils # (1.8-7.7) K/mm3 PT (12.2-14.9) Sec. INR (0.87-1.13) APTT (24.2-36.6) Sec. Thrombin Time (15.1-19.6) Sec. Sodium (137-145) mmol/L Potassium (3.6-5.0) mmol/L Chloride (98-107) mmol/L Carbon Dioxide (22-30) mmol/L Anion Gap mmol/L BUN (9-20) mg/dL Creatinine (0.8-1.5) mg/dL Estimated GFR ml/min BUN/Creatinine Ratio % Glucose (75-100) mg/dL Calcium (8.4-10.2) mg/dL Total Bilirubin (0.1-1.2) mg/dL Direct Bilirubin (0-0.2) mg/dL Indirect Bilirubin mg/dL AST (5-40) units/L ALT (7-56) units/L Alkaline Phosphatase (35-129) units/L Total Creatine Kinase (55-170) units/L CK-MB (CK-2) (0.0-4.0) ng/mL CK-MB (CK-2) Rel Index (0-4) Troponin T (0.00-0.029) ng/mL Total Protein (6.3-8.2) g/dL Albumin (3.9-5) g/dL Albumin/Globulin Ratio % Triglycerides (2-149) mg/dL Cholesterol (50-199) mg/dL LDL Cholesterol Direct (50-130) mg/dL HDL Cholesterol (40-59) mg/dL Cholesterol/HDL Ratio % Urine Color (Yellow) Urine Turbidity (Clear) Urine pH (5.0-7.0) Ur Specific [place] (1.003-1.030) Urine Protein (Negative) mg/dL Urine Glucose (UA) (Negative) mg/dL Urine Ketones (Negative) mg/dL Urine Blood (Negative) Urine Nitrite (Negative) Urine Bilirubin (Negative) Urine Urobilinogen (<2.0) mg/dL Ur Leukocyte Esterase (Negative) Urine WBC (Auto) (0.0-6.0) /HPF Urine RBC (Auto) (0.0-6.0) /HPF U Epithel Cells (Auto) (0-13.0) /HPF Urine Mucus /HPF Urine Opiates Screen Presumptive negative Urine Methadone Screen Presumptive negative Ur Barbiturates Screen Presumptive negative Ur Phencyclidine Scrn Presumptive negative Ur Amphetamines Screen Presumptive negative U Benzodiazepines Scrn Presumptive negative Urine Cocaine Screen Presumptive negative U Marijuana (THC) Screen Presumptive negative Drugs of Abuse Note Disclamer Blood Type Antibody Screen - Medical Decision Making This is a 54-year-old male that presents with possible stroke. Patient is stable and was examined by me. Patient was consulted with telemetry neurologist Beltran Nava and patient is not a TPA candidate. Requested for a CT angio of head and neck to be obtained. Patient is admitted by hospitalist. At time of admission, the patient does not seem toxic or ill in appearance. No acute signs of distress noted. Patient agrees to admission treatment plan of care. No further questions noted by the patient. Critical care attestation.: If time is entered above; I have spent that time in minutes in the direct care of this critically ill patient, excluding procedure time. ED Disposition Clinical Impression: Right sided weakness, Hypertensive urgency CVA (cerebral vascular accident) Qualifiers: CVA mechanism: unspecified Qualified Code(s): I63.9 - Cerebral infarction, unspecified Disposition: DC-09 OP ADMIT IP TO THIS HOSP Is pt being admited?: Yes Condition: Stable
--- NOTE | 2019-10-13 16:24 | Progress Note ---
Subjective Date of service: 10/13/19 Interval history: agree with radiology review of CT the CTA reports are pending and I did check images Objective - Vital Sign Vital Signs - 12hr 10/13/19 10/13/19 14:22 15:00 Temperature 98.7 F Pulse Rate 93 H Respiratory 16 Rate Blood Pressure 166/116 [Left] O2 Sat by Pulse 99 Oximetry - Laboratory Findings CBC and BMP: 10/13/19 14:27 10/13/19 14:43 Abnormal Lab Findings: Abnormal Labs 10/13/19 10/13/19 10/13/19 14:27 14:27 14:43 RBC 5.10 H Hgb 11.7 L MCV 74 L MCH 23 L MCHC 31 L RDW 19.4 H [place] % (Auto) 8.6 H Seg Neutrophils % 70.7 H Sodium 135 L Carbon Dioxide 18 L Glucose 109 H 105 H Troponin T 0.062 H HDL Cholesterol 85 H
--- NOTE | 2019-10-13 16:42 | Cat Scan Report ---
CTA head with intravenous contrast CLINICAL HISTORY: stroke TECHNIQUE: 0.625 mm thick contiguous axial scans were obtained from the skull base to the skull vertex during ra pid bolus administration of intravenous contrast material. Multiplanar reconstructions were produced in the coronal and sagittal planes. In addition 3 plane MIP instructions were produced and reviewed f or this report. The axial source images and reconstructed images were reviewed for this report. All CT scans at this location are performed using CT dose reduction for ALARA by means of automated e xposure control. FINDINGS: The caliber of the intracranial vessels is normal throughout. There is no indication of intracranial stenosis or large vessel occlusion. There is no indication of vasculitis. Internal carotid arteries: Petrous, cavernous and supraclinoid segments of both internal carotid gilbert zoila have an unremarkable appearance. Anterior cerebral arteries: A1 and A2 segments of the anterior cerebral arteries have a normal appear ance. No abnormalities are seen along the pericallosal branches of the anterior cerebral arteries. Middle cerebral arteries: M1 and M2 segments of both middle cerebral arteries have a normal appearanc e. No abnormalities are seen to involve the sylvian branches of the MCA. Posterior circulation: Both vertebral arteries contribute to the basilar artery origin. Basilar arter y is of normal caliber throughout. No abnormalities of the posterior cerebral arteries are observed. There is no evidence of aneurysm or other vascular malformation. IMPRESSION: No abnormality on CTA head. CONTRAST DOSE REPORT: Blank: Contrast dose ml administered intravenously. Signer Name: Kavon Mukherjee MD Signed: 10/13/2019 4:38 PM Workstation Name: [id number]
--- NOTE | 2019-10-13 16:52 | Cat Scan Report ---
CTA neck without and with intravenous contrast material, with multiplanar reconstruction and with thr ee-dimensional reconstructions produced utilizing an independent workstation. CLINICAL HISTORY: stroke TECHNIQUE: Following acquisition of a timing bolus 0.63 mm thick contiguous axial scans were obtained from aorti c arch to the skull base during rapid bolus intravenous contrast infusion. In addition to evaluation of axial source images multiplanar reconstructions were produced and reviewed for this report. Three- dimensional reconstructions were produced utilizing an independent workstation. These were also revie wed for this report. FINDINGS: Thoracic aorta: No abnormalities are seen along the visualized portions of the thoracic aorta. The or igin of the brachiocephalic artery, left common carotid artery and left subclavian artery all have an unremarkable appearance. No abnormalities are seen on evaluation of the right subclavian artery. Right carotid artery: Common carotid artery and right carotid bifurcation have a normal appearance. M oderate tortuosity of the R ICA is noted. There is no indication of atherosclerotic disease along the course of this vessel. Left carotid artery: Left common carotid artery and left carotid bifurcation have a normal appearance . Evaluation of the cervical segments of the LICA reveal moderate tortuosity. There is no indication of atherosclerotic disease along the course of the LICA. Normal and symmetrical vertebral arteries are present. There is no indication of stenosis along the c ourse of the vertebral arteries. Both vertebral arteries contribute to the basilar artery origin. The basilar artery has an unremarkable appearance. The degree of stenosis, if any, is determined utilizing NASCET like criteria. In this case there is no indication of hemodynamically significant stenosis at the carotid bifurcations or elsewhere.. Evaluation of the nonvascular soft tissue structures reveal no abnormality. There is no indication of cervical lymphadenopathy. No abnormalities are seen along the course of the airway. Visualized porti ons of the parotid glands and the submandibular salivary glands have a normal appearance. Thyroid gla nd has a normal appearance. Evaluation of the lung apices reveals no evidence of lung nodule or infil trate. Evaluation of the cervical spine is remarkable for widespread cervical spondylosis with anteri or and posterior osteophyte demonstrated at multiple levels. Multifocal neuroforaminal narrowing is o bserved. There is no indication of central canal stenosis.. IMPRESSION: 1. No indication of hemodynamically significant stenosis at the carotid bifurcations or elsewhere. Contrast dose report: Omnipaque 350: 100 ml, administered intravenously All CT examinations performed at this facility utilize modulated dose reduction, iterative reconstruc tion or weight-based dosing, as appropriate, to obtain a radiation dose which is as low as can reason ably be achieved. Signer Name: Kavon Mukherjee MD Signed: 10/13/2019 4:48 PM Workstation Name: [id number]
[2019-10-13] MEDS ORDERED: carvediloL 6.25 MG TAB PO ONE (17:13)
[2019-10-13] MEDS ORDERED: FUROSEMIDE 40 MG/4 ML INJ IV ONE (17:13)
--- NOTE | 2019-10-13 17:24 | Progress Note ---
Subjective Date of service: 10/13/19 Interval history: I reviewed over the CTA and report is available for review tend to agree plan MRI of brain and MRA on [place] to assess this could be cardiac embolus further w/u helpful thanks Objective - Vital Sign Vital Signs - 12hr 10/13/19 10/13/19 10/13/19 14:22 15:00 16:56 Temperature 98.7 F Pulse Rate 93 H 85 Respiratory 16 Rate Blood Pressure 166/116 163/121 [Left] O2 Sat by Pulse 99 99 Oximetry - Laboratory Findings CBC and BMP: 10/13/19 14:27 10/13/19 14:43 Abnormal Lab Findings: Abnormal Labs 10/13/19 10/13/19 10/13/19 14:27 14:27 14:43 RBC 5.10 H Hgb 11.7 L MCV 74 L MCH 23 L MCHC 31 L RDW 19.4 H [place] % (Auto) 8.6 H Seg Neutrophils % 70.7 H Sodium 135 L Carbon Dioxide 18 L Glucose 109 H 105 H Troponin T 0.062 H HDL Cholesterol 85 H
[2019-10-13] MEDS ORDERED: ONDANSETRON 4 MG/2 ML INJ IV PRN (19:38)
[2019-10-13] MEDS ORDERED: ACETAMINOPHEN 325 MG TAB PO PRN (19:38)
[2019-10-13] MEDS ORDERED: MAGNESIUM HYDROXIDE (MOM) ORAL LIQD UDC PO PRN (19:38)
[2019-10-13] MEDS ORDERED: hydrALAZINE 20 MG/1 ML INJ IV PRN (19:44)
--- NOTE | 2019-10-13 21:06 | History and Physical Report ---
History of Present Illness Date of examination: 10/13/19 Date of admission: 10/13/19 17:21 Chief complaint: right facial drooping History of present illness: 54-year-old -Citizen Of [place] male with history of hypertension (?? Noncompliant with meds), CHF with EF 10-15%, EtOH abuse who presents to [facility] with complaints of right sided facial droop and mild alteration in mentation. Pt's family is present at the bedside and has assisted in providing history. According to pt's is last known normal was 10 pm last night before going to bed. When pt woke up this morning, she noticed that his speech and mentation was altered and he had a right sided facial droop. Also, when pt attempted to drink a glass of water the water was running out his mouth. Pt states that he felt fine and didn't notice any facial changes. He denies n/v, fever, headache, visual disturbances, or gait dysfunction. Past History Past Medical History: heart failure (EF 10-15% seen on Echo 05/10/17), hypertension, other (ETOH abuse) Past Surgical History: No surgical history Social history: lives with family Family history: no significant family history Medications and Allergies Allergies Allergy/AdvReac Type Severity Reaction Status Date / Time No Known Allergies Allergy Verified 04/22/18 10:13 Home Medications Medication Instructions Recorded Confirmed Last Taken Type Aspirin [Adult Low Dose Aspirin EC] 81 mg PO QDAY #30 tab 05/12/17 04/11/19 Unk nown Rx Furosemide [Lasix TAB] 40 mg PO QDAY #30 tablet 05/12/17 04/11/19 Unknown Rx Doxazosin [Cardura] 4 mg PO BID 04/11/19 04/11/19 Unknown History Furosemide [Lasix TAB] 40 mg PO QDAY #14 tablet 04/11/19 Unknown Rx NIFEdipine XL [Procardia Xl] 90 mg PO QDAY 04/11/19 04/11/19 Unknown History carvediloL [Coreg] 12.5 mg PO BID 04/11/19 04/11/19 Unknown History Active Meds: Active Medications Acetaminophen (Tylenol) 650 mg PO Q4H PRN PRN Reason: Pain, Mild (1-3) Aspirin (Halfprin Ec) 81 mg PO QDAY JORDANA Bisacodyl (Dulcolax) 10 mg [place] QDAY PRN PRN Reason: Constipation Enoxaparin Sodium (Enoxaparin) 40 mg SUB-Q QDAY JORDANA Hydralazine HCl (Apresoline) 10 mg IV Q4HR PRN PRN Reason: Blood Pressure Magnesium Hydroxide (Milk Of Magnesia) 30 ml PO Q4H PRN PRN Reason: Constipation Ondansetron HCl (Zofran) 4 mg IV Q8H PRN PRN Reason: Nausea And Vomiting Pravastatin Sodium (Pravachol) 40 mg PO QHS JORDANA Review of Systems All systems: negative Cardiovascular: high blood pressure Neurological: change in mentation, other (right sided facial droop) Exam - Physical Exam Narrative exam: Physical exam General appearance: Present: No acute distress, alert and oriented 3, symmetrical smile, pleasant , well-developed, well-nourished, -Citizen Of [place] adult male - EENT Eyes: Present: PERRL, EOM intact ENT: hearing intact, no dentition - Neck Neck: Present: supple, normal ROM - Respiratory Respiratory effort: Non-labored Respiratory: Clear throughout - Cardiovascular Heart rate: 89 (bpm) Rhythm: Sinus rhythm Heart Sounds: Present: S1 & S2. Absent: rub, click - Extremities Extremities: no ischemia, pulses intact, - Peripheral Assessment Peripheral Pulses: within normal limits - Abdominal General gastrointestinal: soft, non-tender, normal bowel sounds - Integumentary Integumentary: Present: warm, dry - Musculoskeletal Musculoskeletal: Able to move all extremities -Neurological Neurological: CN II-XII intact - Psychiatric Psychiatric: cooperative - Constitutional Vitals: Temp Pulse Resp BP Pulse Ox 98.7 F 84 12 150/96 100 10/13/19 15:00 10/13/19 19:00 10/13/19 19:00 10/13/19 20:00 10/13/19 19:00 Results - Labs CBC & Chem 7: 10/13/19 14:27 10/13/19 14:43 Labs: Laboratory Last Values WBC 7.7 K/mm3 (4.5-11.0) 10/13/19 14:27 RBC 5.10 M/mm3 (3.65-5.03) H 10/13/19 14:27 Hgb 11.7 gm/dl (11.8-15.2) L 10/13/19 14:27 Hct 37.7 % (35.5-45.6) 10/13/19 14:27 MCV 74 fl (84-94) L 10/13/19 14:27 MCH 23 pg (28-32) L 10/13/19 14:27 MCHC 31 % (32-34) L 10/13/19 14:27 RDW 19.4 % (13.2-15.2) H 10/13/19 14:27 Plt Count 144 K/mm3 (140-440) 10/13/19 14:27 Lymph % (Auto) 18.5 % (13.4-35.0) 10/13/19 14:27 [place] % (Auto) 8.6 % (0.0-7.3) H 10/13/19 14:27 Eos % (Auto) 1.6 % (0.0-4.3) 10/13/19 14:27 Baso % (Auto) 0.6 % (0.0-1.8) 10/13/19 14:27 Lymph # 1.4 K/mm3 (1.2-5.4) 10/13/19 14:27 [place] # 0.7 K/mm3 (0.0-0.8) 10/13/19 14:27 Eos # 0.1 K/mm3 (0.0-0.4) 10/13/19 14:27 Baso # 0.0 K/mm3 (0.0-0.1) 10/13/19 14:27 Seg Neutrophils % 70.7 % (40.0-70.0) H 10/13/19 14:27 Seg Neutrophils # 5.4 K/mm3 (1.8-7.7) 10/13/19 14:27 PT 13.8 Sec. (12.2-14.9) 10/13/19 14:27 INR 1.07 (0.87-1.13) 10/13/19 14:27 APTT 24.4 Sec. (24.2-36.6) 10/13/19 14:27 Thrombin Time 16.1 Sec. (15.1-19.6) 10/13/19 14:27 Sodium 135 mmol/L (137-145) L 10/13/19 14:43 Potassium 4.5 mmol/L (3.6-5.0) 10/13/19 14:43 Chloride 101.6 mmol/L (98-107) 10/13/19 14:43 Carbon Dioxide 18 mmol/L (22-30) L 10/13/19 14:43 Anion Gap 20 mmol/L 10/13/19 14:43 BUN 20 mg/dL (9-20) 10/13/19 14:43 Creatinine 1.5 mg/dL (0.8-1.5) 10/13/19 14:43 Estimated GFR 59 ml/min 10/13/19 14:43 BUN/Creatinine Ratio 13 % 10/13/19 14:43 Glucose 105 mg/dL (75-100) H 10/13/19 14:43 Calcium 9.3 mg/dL (8.4-10.2) 10/13/19 14:43 Total Bilirubin 0.60 mg/dL (0.1-1.2) 10/13/19 14:43 Direct Bilirubin < 0.2 mg/dL (0-0.2) 10/13/19 14:43 Indirect Bilirubin 0.4 mg/dL 10/13/19 14:43 AST 18 units/L (5-40) 10/13/19 14:43 ALT 15 units/L (7-56) 10/13/19 14:43 Alkaline Phosphatase 47 units/L (35-129) 10/13/19 14:43 Total Creatine Kinase 120 units/L (55-170) 10/13/19 14:27 CK-MB (CK-2) 2.1 ng/mL (0.0-4.0) 10/13/19 14:27 CK-MB (CK-2) Rel Index 1.7 (0-4) 10/13/19 14:27 Troponin T 0.062 ng/mL (0.00-0.029) H 10/13/19 14:27 Total Protein 7.0 g/dL (6.3-8.2) 10/13/19 14:43 Albumin 4.1 g/dL (3.9-5) 10/13/19 14:43 Albumin/Globulin Ratio 1.4 % 10/13/19 14:43 Triglycerides 122 mg/dL (2-149) 10/13/19 14:27 Cholesterol 172 mg/dL (50-199) 10/13/19 14:27 LDL Cholesterol Direct 77 mg/dL (50-130) 10/13/19 14:27 HDL Cholesterol 85 mg/dL (40-59) H 10/13/19 14:27 Cholesterol/HDL Ratio 2.02 % 10/13/19 14:27 Urine Color Yellow (Yellow) 10/13/19 Unknown Urine Turbidity Clear (Clear) 10/13/19 Unknown Urine pH 5.0 (5.0-7.0) 10/13/19 Unknown Ur Specific [place] 1.019 (1.003-1.030) 10/13/19 Unknown Urine Protein 30 mg/dl mg/dL (Negative) 10/13/19 Unknown Urine Glucose (UA) Neg mg/dL (Negative) 10/13/19 Unknown Urine Ketones Neg mg/dL (Negative) 10/13/19 Unknown Urine Blood Neg (Negative) 10/13/19 Unknown Urine Nitrite Neg (Negative) 10/13/19 Unknown Urine Bilirubin Neg (Negative) 10/13/19 Unknown Urine Urobilinogen < 2.0 mg/dL (<2.0) 10/13/19 Unknown Ur Leukocyte Esterase Neg (Negative) 10/13/19 Unknown Urine WBC (Auto) 1.0 /HPF (0.0-6.0) 10/13/19 Unknown Urine RBC (Auto) 1.0 /HPF (0.0-6.0) 10/13/19 Unknown U Epithel Cells (Auto) < 1.0 /HPF (0-13.0) 10/13/19 Unknown Urine Mucus Few /HPF 10/13/19 Unknown Urine Opiates Screen Presumptive negative 10/13/19 Unknown Urine Methadone Screen Presumptive negative 10/13/19 Unknown Ur Barbiturates Screen Presumptive negative 10/13/19 Unknown Ur Phencyclidine Scrn Presumptive negative 10/13/19 Unknown Ur Amphetamines Screen Presumptive negative 10/13/19 Unknown U Benzodiazepines Scrn Presumptive negative 10/13/19 Unknown Urine Cocaine Screen Presumptive negative 10/13/19 Unknown U Marijuana (THC) Screen Presumptive negative 10/13/19 Unknown Drugs of Abuse Note Disclamer 10/13/19 Unknown Blood Type O POSITIVE 10/13/19 14:27 Antibody Screen Negative 10/13/19 14:27 - Imaging and Cardiology Imaging and Cardiology: CT Head: FINDINGS: HEMORRHAGE: No evidence of intracranial hemorrhage or extra-axial fluid collection. EXTRA-AXIAL SPACES: Cortical sulci, sylvian fissures and basilar cisterns have an unremarkable appearance. VENTRICULAR SYSTEM: The ventricular system is of normal size and configuration. CEREBRAL PARENCHYMA: No areas of abnormal brain parenchymal attenuation are identified. There is no indication of recent infarction. MIDLINE SHIFT OR HERNIATION: There is no mass effect. CEREBELLUM / BRAINSTEM: Brainstem and cerebellum have an unremarkable appearance. INTRACRANIAL VESSELS:No abnormalities are identified on this noncontrast head CT. ORBITS: visualized portions of the orbits have an unremarkable appearance. SOFT TISSUES of HEAD: No significant abnormality. CALVARIUM: Evaluation of bone windows reveals no abnormalities. Incidental note is made of ossification of the falx in the anterior interhemispheric fissure. PARANASAL SINUSES / MASTOID AIR CELLS: Paranasal sinuses are free from inflammatory mucosal disease. Mastoid air cells are normally pneumatized. ADDITIONAL FINDINGS: None. IMPRESSION: 1. Negative head CT without contrast. CT angio Head: FINDINGS: Thoracic aorta: No abnormalities are seen along the visualized portions of the thoracic aorta. The origin of the brachiocephalic artery, left common carotid artery and left sub clavian artery all have an unremarkable appearance. No abnormalities are seen on evaluation of the right subclavian artery. Right carotid artery: Common carotid artery and right carotid bifurcation have a normal appearance. Moderate tortuosity of the R ICA is noted. There is no indication of ather osclerotic disease along the course of this vessel. Left carotid artery: Left common carotid artery and left carotid bifurcation have a normal appearance. Evaluation of the cervical segments of the LICA reveal moderate tortuosity. There is no indication of atherosclerotic disease along the course of the LICA. Normal and symmetrical vertebral arteries are present. There is no indication of stenosis along the course of the vertebral arteries. Both vertebral arteries contribute to the basilar artery origin. The basilar artery has an unremarkable appearance. The degree of stenosis, if any, is determined utilizing NASCET like criteria. In this case there is no indication of hemodynamically significant stenosis at the carotid bifurcations or elsewhere.. Evaluation of the nonvascular soft tissue structures reveal no abnormality. There is no indication of cervical lymphadenopathy. No abnormalities are seen along the course of the airway. Visualized portions of the parotid glands and the submandibular salivary glands have a normal appearance. Thyroid gland has a normal appearance. Evaluation of the lung apices reveals no evidence of lung nodule or infiltrate. Evaluation of the cervical spine is remarkable for widespread cervical spondylosis with anterior and posterior osteophyte demonstrated at multiple levels. Multifocal neuroforaminal narrowing is observed. There is no indication of central canal stenosis.. IMPRESSION: 1. No indication of hemodynamically significant stenosis at the carotid bifurcations or elsewhere. CT angio Neck: FINDINGS: The caliber of the intracranial vessels is normal throughout. There is no indication of intracranial stenosis or large vessel occlusion. There is no indication of vasculitis. Internal carotid arteries: Petrous, cavernous and supraclinoid segments of both internal carotid arteries have an unremarkable appearance. Anterior cerebral arteries: A1 and A2 segments of the anterior cerebral arteries have a normal appearance. No abnormalities are seen along the pericallosal branches of the anterior cerebral arteries. Middle cerebral arteries: M1 and M2 segments of both middle cerebral arteries have a normal appearance. No abnormalities are seen to involve the sylvian branches of the MCA. Posterior circulation: Both vertebral arteries contribute to the basilar artery origin. Basilar artery is of normal caliber throughout. No abnormalities of the posterior cerebral arteries are observed. There is no evidence of aneurysm or other vascular malformation. IMPRESSION: No abnormality on CTA head. Assessment and Plan Assessment and plan: 54-year-old -Citizen Of [place] male with history of hypertension (?? Noncompliant with meds), CHF with EF 10-15%, EtOH abuse who presents to [facility] with complaints of right sided facial droop and mild alteration in mentation. At the time of my examination pt was returning from rest room. He has a normal steady gait. He does not have a right facial droop. He is A&O x3. Will admit for further evaluation and treatment. R/O TIA R/O CVA -CT Head, CT angio Head, CT angio Neck were all negative -Neurology consulted; recommendations appreciated -not a candidate for TPA -MRI/ MRA Head and Echo pending -Neuro Checks -PT/OT eval pending -On ASA and Statin -Continue supportive care Hypertensive urgency -BP on admission 163/121 -Hx Hypertension -Continue to monitor BP -Resume home antihypertensive meds to once medication reconciliation has been updated -IV antihypertensive when necessary Elevated Troponin -initial troponin 0.062 -Denies active CP and SOB -Hx of CHF with EF 10-15% seen on Echo (05/10/17) -Will continue to trend -Cardiology consulted Anemia -Hemoglobin on admission 11.7 -No s/s of active bleeding -Continue to monitor hemoglobin -Transfuse as needed Hx EtOH Abuse -Denies recent consumption -UDS negative CHF -EF 10-15% seen on Echo (05/10/17) -Resume HF meds once medication reconciliation has been updated DVT PPX -on Lovenox Advance Directives: No VTE prophylaxis?: Chemical Plan of care discussed with patient/family: Yes
--- NOTE | 2019-10-13 21:42 | Consultation ---
HISTORY OF PRESENT ILLNESS: This is a 54-year-old black male who presents to [facility] as a stroke alert. I spoke directly with [facility]. He was seen in the CT scan room shortly after passing through registration. A history obtainable from the EMS workers is that about 10:00 p.m. last night, he was last known well time. When they awoke this morning, he was noted to not be himself. He was noted to have a left facial weakness, did not seem quite as responsive to the family, was not speaking as well, but obviously had no focal weakness except perhaps for the left face. When the EMS came to see the patient, his blood pressure was 190/130. He was not complaining of a headache. He had an alteration in consciousness. ALLERGIES: None per history. PHYSICAL EXAMINATION: VITAL SIGNS: Blood pressure is 190/130, pulse rate is 82, respirations 18. NECK: Supple. NEUROLOGIC: He is fully alert, cooperative, sitting on the stretcher. He can move from the stretcher to the CT scan table quite well. He does not have any focal weakness of his arms or legs. He does seem quite hyperverbal, however. I do not notice any clear-cut visual field defects. He has a left central facial weakness. He does not appear to be in any distress. Sensory examination is unremarkable. No tremors, no asterixis. No marked motor abnormalities present on exam to gross assessment. No family members are present at this point to get an additional history from, would be worth speaking to them later. IMPRESSION: Hypertensive ischemic stroke, likely. I checked his CT scan of the head, it is quite unremarkable. I do not see any evidence of any previous trevizo or white matter strokes. When I questioned the patient, he admitted to me he had had a stroke before. He is on lisinopril and Lasix for blood pressure control. It is difficult for him to relate whether he was compliant. PLAN: The patient will be assessed in the emergency room after a period of time and further assessment will be made by the ED physician. Obviously cardiac testing, assessment of whether he may have had been in atrial fibrillation, embolization, all those issues remain to be seen. It should be noted his last known well time was nearly 14 hours ago, so he is well outside the window for assessment and he does not have symptoms at this point that would point to a major vessel occlusive disease and he does not have a hyperdense sign on his CAT scan. JOB# [id number] KAUSHIK/NTS
[2019-10-13] MEDS: PRAVASTATIN 40 MG TAB PO SCH (23:09)
--- NOTE | 2019-10-14 06:00 | Consultation ---
History of Present Illness - History of Present Illness [facility] Date of Service: 10/13/2019 14:05:08 Impression: RO Acute Ischemic Stroke Comments: Rule out large vessel ischemic disease. The patients CTA head.neck is negative. Mechanism of Stroke: Small Vessel Disease Metrics: Last Known Well: 10/12/2019 22:00:00 [facility] Notification Time: 10/13/2019 14:04:15 Arrival Time: 10/13/2019 14:12:50 Stamp Time: 10/13/2019 14:05:08 Time First Login Attempt: 10/13/2019 14:11:00 Video Start Time: 10/13/2019 14:11:00 Symptoms: aphasia NIHSS Start Assessment Time: 10/13/2019 14:13:22 Patient is not a candidate for tPA. Video End Time: 10/13/2019 14:20:00 Advanced imaging was reviewed, No Indication of Large Vessel Occlusive Thrombus. Radiologist was called back for review of advanced imaging on 10/13/2019 14:16:58 ER Physician notified of the decision on thrombolytics management on 10/13/2019 14:16:57 Our recommendations are outlined below. Recommendations: Activate Stroke Protocol Admission/Order Set Stroke/Telemetry Floor Neuro Checks Bedside Swallow Eval DVT Prophylaxis IV Fluids, Normal Saline Head of Bed Below 30 Degrees Euglycemia and Avoid Hyperthermia (PRN Acetaminophen) Antiplatelet Therapy Recommended Recommended Scan: MRI Head Without Contrast Lipid Panel to Be Obtained, if Not Done in the Last Three Months Therapies: Physical Therapy, Occupational Therapy, Speech Therapy Assessment When Applicable Dysphaghia Screen: Swallow Evaluation, Bedside NPO Until Swallow Evaluation DVT prophylaxis: Choice of Primary Team Disposition: Follow up with Teleneurology Follow up Sign Out: Discussed with Emergency Department Provider History of Present Illness: Patient is a 54 year old Male. He was disoriented again at 6:00 am, and was saying 'that thing' over and over again. He did not have weakness but was just aphasic. Last seen normal was beyond 4.5 hours of presentation. There is no history of hemorrhagic complications or intracranial hemorrhage. There is no history of Recent Anticoagulants. There is no history of recent major surgery. There is no history of recent stroke. Examination: BP(190/130), Pulse(90), Blood Glucose(129) 1A: Level of Consciousness - Alert; keenly responsive + 0 1B: Ask Month and Age - Both Questions Right + 0 1C: Blink Eyes & Squeeze Hands - Performs Both Tasks + 0 2: Test Horizontal Extraocular Movements - Normal + 0 3: Test Visual [place] - No Visual Loss + 0 4: Test Facial Palsy (Use Grimace if Obtunded) - Normal symmetry + 0 5A: Test Left Arm Motor Drift - No Drift for 10 Seconds + 0 5B: Test Right Arm Motor Drift - No Drift for 10 Seconds + 0 6A: Test Left Leg Motor Drift - No Drift for 5 Seconds + 0 6B: Test Right Leg Motor Drift - No Drift for 5 Seconds + 0 7: Test Limb Ataxia (FNF/Heel-Reddy) - No Ataxia + 0 8: Test Sensation - Normal; No sensory loss + 0 9: Test Language/Aphasia - Normal; No aphasia + 0 10: Test Dysarthria - Normal + 0 11: Test Extinction/Inattention - No abnormality + 0 NIHSS Score: 0 Patient was informed the Neurology Consult would happen via TeleHealth consult by way of interactive audio and video telecommunications and consented to receiving care in this manner. Due to the immediate potential for life-threatening deterioration due to underlying acute neurologic illness, I spent 35 minutes providing critical care. This time includes time for face to face visit via telemedicine, review of medical records, imaging studies and discussion of findings with providers, the patient and/or family. Dr Froylan [facility] Case [id number] Past History Past Medical History: heart failure (EF 10-15% seen on Echo 05/10/17), hypertension, other (ETOH abuse) Past Surgical History: No surgical history Social history: lives with family Family history: no significant family history Medications and Allergies Allergies Allergy/AdvReac Type Severity Reaction Status Date / Time No Known Allergies Allergy Verified 04/22/18 10:13 Home Medications Medication Instructions Recorded Confirmed Last Taken Type Aspirin [Adult Low Dose Aspirin EC] 81 mg PO QDAY #30 tab 06/23/17 05/23/19 Unknown Rx Furosemide [Lasix TAB] 40 mg PO QDAY #30 tablet 05/12/17 04/11/19 Unknown Rx Doxazosin [Cardura] 4 mg PO BID 04/11/19 04/11/19 Unknown History Furosemide [Lasix TAB] 40 mg PO QDAY #14 tablet 04/11/19 Unknown Rx NIFEdipine XL [Procardia Xl] 90 mg PO QDAY 04/11/19 04/11/19 Unknown History carvediloL [Coreg] 12.5 mg PO BID 04/11/19 04/11/19 Unknown History Active Meds: Active Medications Acetaminophen (Tylenol) 650 mg PO Q4H PRN PRN Reason: Pain, Mild (1-3) Aspirin (Halfprin Ec) 81 mg PO QDAY JORDANA Bisacodyl (Dulcolax) 10 mg [place] QDAY PRN PRN Reason: Constipation Enoxaparin Sodium (Enoxaparin) 40 mg SUB-Q QDAY [facility] Hydralazine HCl (Apresoline) 10 mg IV Q4HR PRN PRN Reason: Blood Pressure Magnesium Hydroxide (Milk Of Magnesia) 30 ml PO Q4H PRN PRN Reason: Constipation Ondansetron HCl (Zofran) 4 mg IV Q8H PRN PRN Reason: Nausea And Vomiting Pravastatin Sodium (Pravachol) 40 mg PO QHS [facility] Last Admin: 10/13/19 23:09 Dose: 40 mg Documented by: Exam - Constitutional Vitals: Temp Pulse Resp BP Pulse Ox 98.5 F 78 16 156/100 99 10/14/19 04:17 10/14/19 04:17 10/14/19 04:17 10/14/19 04:17 10/14/19 04:17 Results - Labs CBC & Chem 7: 10/13/19 14:27 10/13/19 14:43 Labs: Abnormal lab results 10/13/19 10/13/19 10/13/19 Range/Units 14:27 14:27 14:43 RBC 5.10 H (3.65-5.03) M/mm3 Hgb 11.7 L (11.8-15.2) gm/dl MCV 74 L (84-94) fl MCH 23 L (28-32) pg MCHC 31 L (32-34) % RDW 19.4 H (13.2-15.2) % [place] % (Auto) 8.6 H (0.0-7.3) % Seg Neutrophils % 70.7 H (40.0-70.0) % Sodium 135 L (137-145) mmol/L Carbon Dioxide 18 L (22-30) mmol/L Glucose 109 H 105 H (75-100) mg/dL Troponin T 0.062 H (0.00-0.029) ng/mL HDL Cholesterol 85 H (40-59) mg/dL 10/13/19 Range/Units 21:07 RBC (3.65-5.03) M/mm3 Hgb (11.8-15.2) gm/dl MCV (84-94) fl MCH (28-32) pg MCHC (32-34) % RDW (13.2-15.2) % [place] % (Auto) (0.0-7.3) % Seg Neutrophils % (40.0-70.0) % Sodium (137-145) mmol/L Carbon Dioxide (22-30) mmol/L Glucose (75-100) mg/dL Troponin T 0.063 H (0.00-0.029) ng/mL HDL Cholesterol (40-59) mg/dL
--- NOTE | 2019-10-14 11:04 | Consultation ---
<LUCINA PEREZ - Last Filed: 10/14/19 11:30> History of Present Illness Consult date: 10/14/19 Consult reason: known to you History of present illness: This is a 54-year old male who is admitted and is currently undergoing workup for suspected CVA. A cardiac consultation has been requested because the patient is known to [facility]. Patient has a cardiac history of nonischemic cardiomyopathy dating back to 2017 where an echocardiogram showed severe LV dysfunction, ejection fraction 10-15% but a normal persantine thallium stress test. A follow up echocardiogram done a year ago, showed resolving cardiomyopathy, ejection fraction of 45%. Co-morbidities includes hypertension and alcohol abuse. There were no complaints of chest pain, shortness of breath or palpitations. An ECG is sinus rhythm, LVH with repolarization abnormalities. Past History Past Medical History: heart failure (EF 10-15% seen on Echo 05/10/17), h ypertension, other (ETOH abuse) Past Surgical History: No surgical history Social history: lives with family Family history: no significant family history Medications and Allergies Allergies Allergy/AdvReac Type Severity Reaction Status Date / Time No Known Allergies Allergy Verified 04/22/18 10:13 Home Medications Medication Instructions Recorded Confirmed Last Taken Type Aspirin [Adult Low Dose Aspirin EC] 81 mg PO QDAY #30 tab 05/12/17 04/11/19 Unknown Rx Furosemide [Lasix TAB] 40 mg PO QDAY #30 tablet 05/12/17 04/11/19 Unknown Rx Doxazosin [Cardura] 4 mg PO BID 04/11/19 04/11/19 Unknown History Furosemide [Lasix TAB] 40 mg PO QDAY #14 tablet 04/11/19 Unknown Rx NIFEdipine XL [Procardia Xl] 90 mg PO QDAY 04/11/19 04/11/19 Unknown History carvediloL [Coreg] 12.5 mg PO BID 04/11/19 04/11/19 Unknown History Active Meds: Active Medications Acetaminophen (Tylenol) 650 mg PO Q4H PRN PRN Reason: Pain, Mild (1-3) Aspirin (Halfprin Ec) 81 mg PO QDAY JORDANA Bisacodyl (Dulcolax) 10 mg [place] QDAY PRN PRN Reason: Constipation Enoxaparin Sodium (Enoxaparin) 40 mg SUB-Q QDAY JORDANA Hydralazine HCl (Apresoline) 10 mg IV Q4HR PRN PRN Reason: Blood Pressure Magnesium Hydroxide (Milk Of Magnesia) 30 ml PO Q4H PRN PRN Reason: Constipation Ondansetron HCl (Zofran) 4 mg IV Q8H PRN PRN Reason: Nausea And Vomiting Pravastatin Sodium (Pravachol) 40 mg PO QHS [facility] Last Admin: 10/13/19 23:09 Dose: 40 mg Documented by: Physical Examination Vital Signs Pulse Resp BP Pulse Ox 93 H 16 166/116 99 10/13/19 14:22 10/13/19 14:22 10/13/19 14:22 10/13/19 14:22 General appearance: no acute distress HEENT: Positive: PERRL Neck: Positive: trachea midline Cardiac: Positive: Reg Rate and Rhythm Lungs: Positive: Decreased Breath Sounds Neuro: Positive: Grossly Intact Results 10/13/19 14:27 10/13/19 14:43 Cardiac Enzymes 10/13/19 10/13/19 Range/Units 14:27 14:43 AST 19 18 (5-40) units/L CK-MB (CK-2) 2.1 (0.0-4.0) ng/mL Coagulation 10/13/19 Range/Units 14:27 PT 13.8 (12.2-14.9) Sec. INR 1.07 (0.87-1.13) APTT 24.4 (24.2-36.6) Sec. Lipids 10/13/19 Range/Units 14:27 Triglycerides 122 (2-149) mg/dL Cholesterol 172 (50-199) mg/dL HDL Cholesterol 85 H (40-59) mg/dL Cholesterol/HDL Ratio 2.02 % CBC 10/13/19 Range/Units 14:27 WBC 7.7 (4.5-11.0) K/mm3 RBC 5.10 H (3.65-5.03) M/mm3 Hgb 11.7 L (11.8-15.2) gm/dl Hct 37.7 (35.5-45.6) % Plt Count 144 (140-440) K/mm3 Lymph # 1.4 (1.2-5.4) K/mm3 [place] # 0.7 (0.0-0.8) K/mm3 Eos # 0.1 (0.0-0.4) K/mm3 Baso # 0.0 (0.0-0.1) K/mm3 Comprehensive Metabolic Panel 10/13/19 10/13/19 Range/Units 14:27 14:43 Sodium 139 135 L (137-145) mmol/L Potassium 4.5 4.5 (3.6-5.0) mmol/L Chloride 104.1 101.6 (98-107) mmol/L Carbon Dioxide 22 18 L (22-30) mmol/L BUN 19 20 (9-20) mg/dL Creatinine 1.5 1.5 (0.8-1.5) mg/dL Glucose 109 H 105 H (75-100) mg/dL Calcium 9.1 9.3 (8.4-10.2) mg/dL Direct Bilirubin < 0.2 (0-0.2) mg/dL Indirect Bilirubin 0.4 mg/dL AST 19 18 (5-40) units/L ALT 15 15 (7-56) units/L Alkaline Phosphatase 45 47 (35-129) units/L Total Protein 7.2 7.0 (6.3-8.2) g/dL Albumin 3.9 4.1 (3.9-5) g/dL Assessment and Plan Suspected CVA Hypertension Hx of NICMP, resolving EF 45% by echo 2018 Hx of ETOH abuse Neurology evaluation and workup is in process. We will obtain an echocardiogram for LVEF reassessment. <LEXIS EWDARDS - Last Filed: 10/14/19 13:15> Medications and Allergies Active Meds: Active Medications Acetaminophen (Tylenol) 650 mg PO Q4H PRN PRN Reason: Pain, Mild (1-3) Aspirin (Halfprin Ec) 81 mg PO QDAY [facility] Last Admin: 10/14/19 12:12 Dose: 81 mg Documented by: Bisacodyl (Dulcolax) 10 mg [place] QDAY PRN PRN Reason: Constipation Enoxaparin Sodium (Enoxaparin) 40 mg SUB-Q QDAY [facility] Last Admin: 10/14/19 12:12 Dose: 40 mg Documented by: Hydralazine HCl (Apresoline) 10 mg IV Q4HR PRN PRN Reason: Blood Pressure Magnesium Hydroxide (Milk Of Magnesia) 30 ml PO Q4H PRN PRN Reason: Constipation Ondansetron HCl (Zofran) 4 mg IV Q8H PRN PRN Reason: Nausea And Vomiting Pravastatin Sodium (Pravachol) 40 mg PO QHS JORDANA Last Admin: 10/13/19 23:09 Dose: 40 mg Documented by: Physical Examination Vital Signs Pulse Resp BP Pulse Ox 93 H 16 166/116 99 10/13/19 14:22 10/13/19 14:22 10/13/19 14:22 10/13/19 14:22 Results 10/13/19 14:27 10/13/19 14:43 Cardiac Enzymes 10/13/19 10/13/19 Range/Units 14:27 14:43 AST 19 18 (5-40) units/L CK-MB (CK-2) 2.1 (0.0-4.0) ng/mL Coagulation 10/13/19 Range/Units 14:27 PT 13.8 (12.2-14.9) Sec. INR 1.07 (0.87-1.13) APTT 24.4 (24.2-36.6) Sec. Lipids 10/13/19 Range/Units 14:27 Triglycerides 122 (2-149) mg/dL Cholesterol 172 (50-199) mg/dL HDL Cholesterol 85 H (40-59) mg/dL Cholesterol/HDL Ratio 2.02 % CBC 10/13/19 Range/Units 14:27 WBC 7.7 (4.5-11.0) K/mm3 RBC 5.10 H (3.65-5.03) M/mm3 Hgb 11.7 L (11.8-15.2) gm/dl Hct 37.7 (35.5-45.6) % Plt Count 144 (140-440) K/mm3 Lymph # 1.4 (1.2-5.4) K/mm3 [place] # 0.7 (0.0-0.8) K/mm3 Eos # 0.1 (0.0-0.4) K/mm3 Baso # 0.0 (0.0-0.1) K/mm3 Comprehensive Metabolic Panel 10/13/19 10/13/19 Range/Units 14:27 14:43 Sodium 139 135 L (137-145) mmol/L Potassium 4.5 4.5 (3.6-5.0) mmol/L Chloride 104.1 101.6 (98-107) mmol/L Carbon Dioxide 22 18 L (22-30) mmol/L BUN 19 20 (9-20) mg/dL Creatinine 1.5 1.5 (0.8-1.5) mg/dL Glucose 109 H 105 H (75-100) mg/dL Calcium 9.1 9.3 (8.4-10.2) mg/dL Direct Bilirubin < 0.2 (0-0.2) mg/dL Indirect Bilirubin 0.4 mg/dL AST 19 18 (5-40) units/L ALT 15 15 (7-56) units/L Alkaline Phosphatase 45 47 (35-129) units/L Total Protein 7.2 7.0 (6.3-8.2) g/dL Albumin 3.9 4.1 (3.9-5) g/dL Assessment and Plan I've seen and evaluated the patient and agree with the assessment and plan. Elizabet bruce is presenting with signs and symptoms of suspected CVA, hypertension, history of nonischemic cardiomyopathy by ejection fraction 45% and a history of alcohol abuse. At this time recommend continue current home medical therapy for treatment of nonischemic cardiomyopathy with ejection fraction 45%. The patient is currently euvolemic. We will obtain a new echocardiogram for reevaluation of LV function. Recommend antihypertensive therapy dependent upon neurology recommendations
[2019-10-14] MEDS: ASPIRIN EC 81 MG TAB PO SCH (12:12)
[2019-10-14] MEDS: ENOXAPARIN 40 MG/0.4 ML INJ SUB-Q SCH (12:12)
--- NOTE | 2019-10-14 12:57 | Progress Note ---
Subjective Date of service: 10/14/19 Interval history: BP control is much better at this point the MRI and MRA are still pending as well as the ECHO plan to review see lucho initial note from stroke alert etc. checked CT and CTA personally Objective - Vital Sign Vital Signs - 12hr 10/14/19 10/14/19 10/14/19 04:17 08:29 09:59 Temperature 98.5 F 98.5 F Pulse Rate 78 90 Respiratory 16 20 Rate Blood Pressure 156/100 149/100 O2 Sat by Pulse 99 98 98 Oximetry - Laboratory Findings CBC and BMP: 10/13/19 14:27 10/13/19 14:43 Abnormal Lab Findings: Abnormal Labs 10/13/19 10/13/19 10/13/19 14:27 14:27 14:43 RBC 5.10 H Hgb 11.7 L MCV 74 L MCH 23 L MCHC 31 L RDW 19.4 H [place] % (Auto) 8.6 H Seg Neutrophils % 70.7 H Sodium 135 L Carbon Dioxide 18 L Glucose 109 H 105 H Troponin T 0.062 H HDL Cholesterol 85 H 10/13/19 10/14/19 21:07 07:38 RBC Hgb MCV MCH MCHC RDW [place] % (Auto) Seg Neutrophils % Sodium Carbon Dioxide Glucose Troponin T 0.063 H 0.046 H D HDL Cholesterol
--- NOTE | 2019-10-14 19:07 | Progress Note ---
Assessment and Plan Assessment and plan: --Acute CVA/TIA; Not a candidate for TPA Neuro workup is in progress Aspirin and statin Physical therapy occupational therapy rehabilitation Neurology consult --Hypertension; Permissive hypertension Closely monitor blood pressures --DVT prophylaxis; Lovenox Monitor closely and adjust the management as needed History Interval history: Seen and examined medical records reviewed Admitted with neuro symptoms, neuro workup is in progress Patient feels better Was claustrophobic during MRI MRI was rescheduled for tomorrow Patient has no new complaints vital signs reviewed Hospitalist Physical - Constitutional Vitals: Temp Pulse Resp BP Pulse Ox 98.6 F 94 H 20 160/109 99 10/14/19 13:33 10/14/19 16:00 10/14/19 13:33 10/14/19 13:33 10/14/19 13:33 General appearance: Present: no acute distress, well-nourished - EENT Eyes: Present: PERRL, EOM intact - Neck Neck: Present: supple, normal ROM - Respiratory Respiratory effort: normal Respiratory: bilateral: diminished, negative: rales, rhonchi, wheezing - Cardiovascular Rhythm: regular Heart Sounds: Present: S1 & S2 - Extremities Extremities: no ischemia, No edema - Abdominal General gastrointestinal: soft, non-tender, non-distended, normal bowel sounds - Integumentary Integumentary: Present: clear, warm - Psychiatric Psychiatric: appropriate mood/affect, cooperative - Neurologic Neurologic: CNII-XII intact, moves all extremities Results - Labs CBC & Chem 7: 10/13/19 14:27 10/13/19 14:43 Labs: Laboratory Last Values WBC 7.7 K/mm3 (4.5-11.0) 10/13/19 14:27 RBC 5.10 M/mm3 (3.65-5.03) H 10/13/19 14:27 Hgb 11.7 gm/dl (11.8-15.2) L 10/13/19 14:27 Hct 37.7 % (35.5-45.6) 10/13/19 14:27 MCV 74 fl (84-94) L 10/13/19 14:27 MCH 23 pg (28-32) L 10/13/19 14:27 MCHC 31 % (32-34) L 10/13/19 14:27 RDW 19.4 % (13.2-15.2) H 10/13/19 14:27 Plt Count 144 K/mm3 (140-440) 10/13/19 14:27 Lymph % (Auto) 18.5 % (13.4-35.0) 10/13/19 14:27 [place] % (Auto) 8.6 % (0.0-7.3) H 10/13/19 14:27 Eos % (Auto) 1.6 % (0.0-4.3) 10/13/19 14:27 Baso % (Auto) 0.6 % (0.0-1.8) 10/13/19 14:27 Lymph # 1.4 K/mm3 (1.2-5.4) 10/13/19 14:27 [place] # 0.7 K/mm3 (0.0-0.8) 10/13/19 14:27 Eos # 0.1 K/mm3 (0.0-0.4) 10/13/19 14:27 Baso # 0.0 K/mm3 (0.0-0.1) 10/13/19 14:27 Seg Neutrophils % 70.7 % (40.0-70.0) H 10/13/19 14:27 Seg Neutrophils # 5.4 K/mm3 (1.8-7.7) 10/13/19 14:27 PT 13.8 Sec. (12.2-14.9) 10/13/19 14:27 INR 1.07 (0.87-1.13) 10/13/19 14:27 APTT 24.4 Sec. (24.2-36.6) 10/13/19 14:27 Thrombin Time 16.1 Sec. (15.1-19.6) 10/13/19 14:27 Sodium 135 mmol/L (137-145) L 10/13/19 14:43 Potassium 4.5 mmol/L (3.6-5.0) 10/13/19 14:43 Chloride 101.6 mmol/L (98-107) 10/13/19 14:43 Carbon Dioxide 18 mmol/L (22-30) L 10/13/19 14:43 Anion Gap 20 mmol/L 10/13/19 14:43 BUN 20 mg/dL (9-20) 10/13/19 14:43 Creatinine 1.5 mg/dL (0.8-1.5) 10/13/19 14:43 Estimated GFR 59 ml/min 10/13/19 14:43 BUN/Creatinine Ratio 13 % 10/13/19 14:43 Glucose 105 mg/dL (75-100) H 10/13/19 14:43 Calcium 9.3 mg/dL (8.4-10.2) 10/13/19 14:43 Total Bilirubin 0.60 mg/dL (0.1-1.2) 10/13/19 14:43 Direct Bilirubin < 0.2 mg/dL (0-0.2) 10/13/19 14:43 Indirect Bilirubin 0.4 mg/dL 10/13/19 14:43 AST 18 units/L (5-40) 10/13/19 14:43 ALT 15 units/L (7-56) 10/13/19 14:43 Alkaline Phosphatase 47 units/L (35-129) 10/13/19 14:43 Total Creatine Kinase 120 units/L (55-170) 10/13/19 14:27 CK-MB (CK-2) 2.1 ng/mL (0.0-4.0) 10/13/19 14:27 CK-MB (CK-2) Rel Index 1.7 (0-4) 10/13/19 14:27 Troponin T 0.046 ng/mL (0.00-0.029) H D 10/14/19 07:38 Total Protein 7.0 g/dL (6.3-8.2) 10/13/19 14:43 Albumin 4.1 g/dL (3.9-5) 10/13/19 14:43 Albumin/Globulin Ratio 1.4 % 10/13/19 14:43 Triglycerides 122 mg/dL (2-149) 10/13/19 14:27 Cholesterol 172 mg/dL (50-199) 10/13/19 14:27 LDL Cholesterol Direct 77 mg/dL (50-130) 10/13/19 14:27 HDL Cholesterol 85 mg/dL (40-59) H 10/13/19 14:27 Cholesterol/HDL Ratio 2.02 % 10/13/19 14:27 Urine Color Yellow (Yellow) 10/13/19 Unknown Urine Turbidity Clear (Clear) 10/13/19 Unknown Urine pH 5.0 (5.0-7.0) 10/13/19 Unknown Ur Specific [place] 1.019 (1.003-1.030) 10/13/19 Unknown Urine Protein 30 mg/dl mg/dL (Negative) 10/13/19 Unknown Urine Glucose (UA) Neg mg/dL (Negative) 10/13/19 Unknown Urine Ketones Neg mg/dL (Negative) 10/13/19 Unknown Urine Blood Neg (Negative) 10/13/19 Unknown Urine Nitrite Neg (Negative) 10/13/19 Unknown Urine Bilirubin Neg (Negative) 10/13/19 Unknown Urine Urobilinogen < 2.0 mg/dL (<2.0) 10/13/19 Unknown Ur Leukocyte Esterase Neg (Negative) 10/13/19 Unknown Urine WBC (Auto) 1.0 /HPF (0.0-6.0) 10/13/19 Unknown Urine RBC (Auto) 1.0 /HPF (0.0-6.0) 10/13/19 Unknown U Epithel Cells (Auto) < 1.0 /HPF (0-13.0) 10/13/19 Unknown Urine Mucus Few /HPF 10/13/19 Unknown Urine Opiates Screen Presumptive negative 10/13/19 Unknown Urine Methadone Screen Presumptive negative 10/13/19 Unknown Ur Barbiturates Screen Presumptive negative 10/13/19 Unknown Ur Phencyclidine Scrn Presumptive negative 10/13/19 Unknown Ur Amphetamines Screen Presumptive negative 10/13/19 Unknown U Benzodiazepines Scrn Presumptive negative 10/13/19 Unknown Urine Cocaine Screen Presumptive negative 10/13/19 Unknown U Marijuana (THC) Screen Presumptive negative 10/13/19 Unknown Drugs of Abuse Note Disclamer 10/13/19 Unknown Blood Type O POSITIVE 10/13/19 14:27 Antibody Screen Negative 10/13/19 14:27 Active Medications - Current Medications Current Medications: Generic Name Dose Route Start Last Admin Trade Name Freq PRN Reason Stop Dose Admin Acetaminophen 650 mg 10/13/19 19:38 Tylenol PO Q4H PRN Pain, Mild (1-3) Aspirin 81 mg 10/14/19 10:00 10/14/19 12:12 Halfprin Ec PO 81 mg QDAY JORDANA Administration Bisacodyl 10 mg 10/13/19 19:38 Dulcolax [place] QDAY PRN Constipation Enoxaparin Sodium 40 mg 10/14/19 10:00 10/14/19 12:12 Enoxaparin SUB-Q 40 mg QDAY JORDANA Administration Hydralazine HCl 10 mg 10/13/19 19:44 Apresoline IV Q4HR PRN Blood Pressure Lorazepam 2 mg 10/14/19 19:15 Ativan IV FR[employer]ENT NR Magnesium Hydroxide 30 ml 10/13/19 19:38 Milk Of Magnesia PO Q4H PRN Constipation Ondansetron HCl 4 mg 10/13/19 19:38 Zofran IV Q8H PRN Nausea And Vomiting Pravastatin Sodium 40 mg 10/13/19 22:00 10/13/19 23:09 Pravachol PO 40 mg QHS JORDANA Administration
[2019-10-14] MEDS ORDERED: LORazepam 2 MG/ML VIAL IV NR (19:15)
[2019-10-14] MEDS: PRAVASTATIN 40 MG TAB PO SCH (22:32)
[2019-10-15 09:55] VITALS: BP 155/112
--- NOTE | 2019-10-15 10:47 | Progress Note ---
Assessment and Plan Suspected CVA Hypertension Hx of NICMP, resolving an echocardiogram this presentation reports severely decrease LVEF 10-15%. ETOH abuse Noncompliant with medications. Recommendations: Refrain from alcohol. Fluid/sodium restriction. Resume medical therapy for nonischemic cardiomyopathy. Advised compliance with medications. Subjective Date of service: 10/15/19 Interval history: Patient has no complaints. Wants to go home. BP is currently 155/112. Family member is at the bedside. Objective Vital Signs Temp Pulse Pulse Resp BP Pulse Ox 10/15/19 08:49 83 10/15/19 08:05 98.1 F 89 18 155/112 98 10/15/19 07:02 161/108 10/15/19 04:04 98.4 F 79 16 161/108 97 10/15/19 03:38 85 18 98 10/15/19 00:00 85 10/14/19 23:46 98.5 F 85 16 157/103 98 10/14/19 20:40 98.1 F 91 H 16 159/108 99 10/14/19 16:00 94 H 10/14/19 13:33 98.6 F 89 20 160/109 99 - Physical Examination General: No Apparent Distress HEENT: Positive: PERRL Neck: Positive: trachea midline Cardiac: Positive: Reg Rate and Rhythm Lungs: Positive: Decreased Breath Sounds Neuro: Positive: Grossly Intact Extremities: Absent: edema
[2019-10-15] MEDS ORDERED: LOSARTAN 50 MG TAB PO SCH (11:00)
[2019-10-15] MEDS ORDERED: FUROSEMIDE 40 MG TAB PO SCH (11:00)
[2019-10-15] MEDS ORDERED: carvediloL 25 MG TAB PO SCH (11:00)
[2019-10-15] MEDS ORDERED: POTASSIUM CHLORIDE ER 20 MEQ TAB PO SCH (11:00)
[2019-10-15] MEDS ORDERED: NIFEdipine XL 90 MG TAB PO SCH (11:00)
[2019-10-15] MEDS: ENOXAPARIN 40 MG/0.4 ML INJ SUB-Q SCH (11:40)
[2019-10-15] MEDS: ASPIRIN EC 81 MG TAB PO SCH (11:45)
--- NOTE | 2019-10-15 14:18 | Progress Note ---
Assessment and Plan Assessment and plan: CTA head; no acute abnormality noted CTA neck ;no indication of hemodynamically significant stenosis at the carotid bifurcation WITH CT head without contrast; no acute abnormality noted Hospitalist Physical - Constitutional Vitals: Temp Pulse Resp BP Pulse Ox 98.1 F 83 18 155/112 98 10/15/19 08:05 10/15/19 08:49 10/15/19 08:05 10/15/19 08:05 10/15/19 08:05 General appearance: Present: no acute distress, well-nourished Results - Labs CBC & Chem 7: 10/13/19 14:27 10/13/19 14:43 Labs: Laboratory Last Values WBC 7.7 K/mm3 (4.5-11.0) 10/13/19 14:27 RBC 5.10 M/mm3 (3.65-5.03) H 10/13/19 14:27 Hgb 11.7 gm/dl (11.8-15.2) L 10/13/19 14:27 Hct 37.7 % (35.5-45.6) 10/13/19 14:27 MCV 74 fl (84-94) L 10/13/19 14:27 MCH 23 pg (28-32) L 10/13/19 14:27 MCHC 31 % (32-34) L 10/13/19 14:27 RDW 19.4 % (13.2-15.2) H 10/13/19 14:27 Plt Count 144 K/mm3 (140-440) 10/13/19 14:27 Lymph % (Auto) 18.5 % (13.4-35.0) 10/13/19 14:27 [place] % (Auto) 8.6 % (0.0-7.3) H 10/13/19 14:27 Eos % (Auto) 1.6 % (0.0-4.3) 10/13/19 14:27 Baso % (Auto) 0.6 % (0.0-1.8) 10/13/19 14:27 Lymph # 1.4 K/mm3 (1.2-5.4) 10/13/19 14:27 [place] # 0.7 K/mm3 (0.0-0.8) 10/13/19 14:27 Eos # 0.1 K/mm3 (0.0-0.4) 10/13/19 14:27 Baso # 0.0 K/mm3 (0.0-0.1) 10/13/19 14:27 Seg Neutrophils % 70.7 % (40.0-70.0) H 10/13/19 14:27 Seg Neutrophils # 5.4 K/mm3 (1.8-7.7) 10/13/19 14:27 PT 13.8 Sec. (12.2-14.9) 10/13/19 14:27 INR 1.07 (0.87-1.13) 10/13/19 14:27 APTT 24.4 Sec. (24.2-36.6) 10/13/19 14:27 Thrombin Time 16.1 Sec. (15.1-19.6) 10/13/19 14:27 Sodium 135 mmol/L (137-145) L 10/13/19 14:43 Potassium 4.5 mmol/L (3.6-5.0) 10/13/19 14:43 Chloride 101.6 mmol/L (98-107) 10/13/19 14:43 Carbon Dioxide 18 mmol/L (22-30) L 10/13/19 14:43 Anion Gap 20 mmol/L 10/13/19 14:43 BUN 20 mg/dL (9-20) 10/13/19 14:43 Creatinine 1.5 mg/dL (0.8-1.5) 10/13/19 14:43 Estimated GFR 59 ml/min 10/13/19 14:43 BUN/Creatinine Ratio 13 % 10/13/19 14:43 Glucose 105 mg/dL (75-100) H 10/13/19 14:43 Calcium 9.3 mg/dL (8.4-10.2) 10/13/19 14:43 Total Bilirubin 0.60 mg/dL (0.1-1.2) 10/13/19 14:43 Direct Bilirubin < 0.2 mg/dL (0-0.2) 10/13/19 14:43 Indirect Bilirubin 0.4 mg/dL 10/13/19 14:43 AST 18 units/L (5-40) 10/13/19 14:43 ALT 15 units/L (7-56) 10/13/19 14:43 Alkaline Phosphatase 47 units/L (35-129) 10/13/19 14:43 Total Creatine Kinase 120 units/L (55-170) 10/13/19 14:27 CK-MB (CK-2) 2.1 ng/mL (0.0-4.0) 10/13/19 14:27 CK-MB (CK-2) Rel Index 1.7 (0-4) 10/13/19 14:27 Troponin T 0.046 ng/mL (0.00-0.029) H D 10/14/19 07:38 Total Protein 7.0 g/dL (6.3-8.2) 10/13/19 14:43 Albumin 4.1 g/dL (3.9-5) 10/13/19 14:43 Albumin/Globulin Ratio 1.4 % 10/13/19 14:43 Triglycerides 122 mg/dL (2-149) 10/13/19 14:27 Cholesterol 172 mg/dL (50-199) 10/13/19 14:27 LDL Cholesterol Direct 77 mg/dL (50-130) 10/13/19 14:27 HDL Cholesterol 85 mg/dL (40-59) H 10/13/19 14:27 Cholesterol/HDL Ratio 2.02 % 10/13/19 14:27 Urine Color Yellow (Yellow) 10/13/19 Unknown Urine Turbidity Clear (Clear) 10/13/19 Unknown Urine pH 5.0 (5.0-7.0) 10/13/19 Unknown Ur Specific [place] 1.019 (1.003-1.030) 10/13/19 Unknown Urine Protein 30 mg/dl mg/dL (Negative) 10/13/19 Unknown Urine Glucose (UA) Neg mg/dL (Negative) 10/13/19 Unknown Urine Ketones Neg mg/dL (Negative) 10/13/19 Unknown Urine Blood Neg (Negative) 10/13/19 Unknown Urine Nitrite Neg (Negative) 10/13/19 Unknown Urine Bilirubin Neg (Negative) 10/13/19 Unknown Urine Urobilinogen < 2.0 mg/dL (<2.0) 10/13/19 Unknown Ur Leukocyte Esterase Neg (Negative) 10/13/19 Unknown Urine WBC (Auto) 1.0 /HPF (0.0-6.0) 10/13/19 Unknown Urine RBC (Auto) 1.0 /HPF (0.0-6.0) 10/13/19 Unknown U Epithel Cells (Auto) < 1.0 /HPF (0-13.0) 10/13/19 Unknown Urine Mucus Few /HPF 10/13/19 Unknown Urine Opiates Screen Presumptive negative 10/13/19 Unknown Urine Methadone Screen Presumptive negative 10/13/19 Unknown Ur Barbiturates Screen Presumptive negative 10/13/19 Unknown Ur Phencyclidine Scrn Presumptive negative 10/13/19 Unknown Ur Amphetamines Screen Presumptive negative 10/13/19 Unknown U Benzodiazepines Scrn Presumptive negative 10/13/19 Unknown Urine Cocaine Screen Presumptive negative 10/13/19 Unknown U Marijuana (THC) Screen Presumptive negative 10/13/19 Unknown Drugs of Abuse Note Disclamer 10/13/19 Unknown Blood Type O POSITIVE 10/13/19 14:27 Antibody Screen Negative 10/13/19 14:27 Active Medications - Current Medications Current Medications: Generic Name Dose Route Start Last Admin Trade Name Freq PRN Reason Stop Dose Admin Acetaminophen 650 mg 10/13/19 19:38 Tylenol PO Q4H PRN Pain, Mild (1-3) Aspirin 81 mg 10/14/19 10:00 10/15/19 11:45 Halfprin Ec PO 81 mg QDAY JORDANA Administration Bisacodyl 10 mg 10/13/19 19:38 Dulcolax [place] QDAY PRN Constipation Carvedilol 25 mg 10/15/19 11:00 Coreg PO BID JORDANA Doxazosin Mesylate 4 mg 10/15/19 22:00 Cardura PO BID JORDANA Enoxaparin Sodium 40 mg 10/14/19 10:00 10/14/19 12:12 Enoxaparin SUB-Q 40 mg QDAY JORDANA Administration Furosemide 40 mg 10/15/19 11:00 10/15/19 11:46 Lasix PO 40 mg QDAY JORDANA Administration Hydralazine HCl 10 mg 10/13/19 19:44 10/15/19 07:02 Apresoline IV 10 mg Q4HR PRN Administration Blood Pressure Losartan Potassium 100 mg 10/15/19 11:00 10/15/19 11:45 Cozaar PO 100 mg QDAY JORDANA Administration Magnesium Hydroxide 30 ml 10/13/19 19:38 Milk Of Magnesia PO Q4H PRN Constipation Nifedipine 90 mg 10/15/19 11:00 10/15/19 11:45 Procardia Xl PO 90 mg QDAY JORDANA Administration Ondansetron HCl 4 mg 10/13/19 19:38 Zofran IV Q8H PRN Nausea And Vomiting Potassium Chloride 20 meq 10/15/19 11:00 10/15/19 11:46 K-[place] PO 20 meq QDAY JORDANA Administration Pravastatin Sodium 40 mg 10/13/19 22:00 10/14/19 22:32 Pravachol PO 40 mg QHS JORDANA Administration
--- NOTE | 2019-10-15 16:00 | Discharge Summary ---
Providers - Providers Date of Admission: 10/14/19 09:31 Date of discharge: 10/15/19 Attending physician: OWEN OLIVO 10/13/19 Consult to Physician [CONS] Routine Comment: Consulting Provider: BREANNA CLINTON Physician Instructions: Reason For Exam: ?? CVA 10/13/19 19:38 Occupational Therapy Evaluate and Treat [CONS] Routine Comment: Reason For Exam: Neuro deficits Physical Therapy Evaluation and Treat [CONS] Routine Comment: Reason For Exam: Neuro deficits 10/13/19 21:15 Consult to Physician [CONS] Routine Comment: Consulting Provider: TALHA BELTRAN Physician Instructions: Reason For Exam: est pt HF EF 10-15%, c/o right sided facial droop Primary care physician: DIRECTOR OF SOFTWARE DEVELOPMENT Hospitalization Reason for admission: confusion and dysarthria Condition: Stable Pertinent studies: CTA head; no acute abnormality noted CTA neck ;no indication of hemodynamically significant stenosis at the carotid bifurcation WITH CT head without contrast; no acute abnormality noted Hospital course: 54-year-old -[place] male with history of hypertension (?? Noncompliant with meds), CHF with EF 10-15%, EtOH abuse who presents to [facility] ED with complaints of right sided facial droop and mild alteration in mentation. Pt's family is present at the bedside and has assisted in providing history. According to pt's is last known normal was 10 pm last night before going to bed. When pt woke up this morning, she noticed that his speech and mentation was altered and he had a right sided facial droop. Also, when pt attempted to drink a glass of water the water was running out his mouth. Pt states that he felt fine and didn't notice any facial changes. Code stroke was called patient was not a candidate for TPA, and aspirin and statin. Patient was claustrophobic and refused MRI Admitted to the hospital had extensive neuro workup as mentioned above. evaluated by neurologist as well as cardiologistMedications were optimized, PT evaluated the patient no physical therapy needs. Patient did not have any neurological deficits independent and ambulatory without support Today patient is comfortable in no new complaints vital signs stable physical examination unremarkable Stable at discharge Discharge diagnosis; --Acute CVA/TIA; Not a candidate for TPA Neuro workup reviewed Aspirin and statin, neurology evaluated No Physical therapy needs Cleared for discharge --Hypertension; well controlled Permissive hypertension Closely monitor blood pressures --DVT prophylaxis; Lovenox Cleared by consultants for discharge and follow-up as outpatient Patient is Stable at discharge Disposition: DC-01 TO HOME OR SELFCARE Time spent for discharge: 32 min Core Measure Documentation - Palliative Care Palliative Care/ Comfort Measures: Not Applicable - Core Measures Any of the following diagnoses?: none Exam - Constitutional Vitals: Temp Pulse Resp BP Pulse Ox 98.1 F 83 18 155/112 98 10/15/19 08:05 10/15/19 08:49 10/15/19 08:05 10/15/19 08:05 10/15/19 08:05 General appearance: Present: no acute distress, well-nourished - EENT Eyes: Present: PERRL, EOM intact - Neck Neck: Present: supple, normal ROM - Respiratory Respiratory effort: normal Respiratory: bilateral: diminished, negative: rales, rhonchi, wheezing - Cardiovascular Rhythm: regular Heart Sounds: Present: S1 & S2 - Extremities Extremities: no ischemia, No edema - Abdominal General gastrointestinal: Present: soft, non-tender, non-distended, normal bowel sounds - Integumentary Integumentary: Present: clear, warm - Musculoskeletal Musculoskeletal: strength equal bilaterally - Psychiatric Psychiatric: appropriate mood/affect, cooperative - Neurologic Neurologic: CNII-XII intact, moves all extremities Plan Activity: advance as tolerated, fall precautions Diet: low salt, other (cardiac diet) Additional Instructions: Advised to see private neurologist in 1 week. If you have any chest pain or shortness of breath, contact M.D.or go to emergency room. Advised to be compliant with medications and follow-up visits Follow up with: PRIMARY CAREMD [Primary Care Provider] - 7 Days BREANNA CLINTON MD [Staff Physician] - 7 Days DEEDEE JOHNSON MD [Staff Physician] - 7 Days Prescriptions: Doxazosin [Cardura] 4 mg PO BID #60 tablet carvediloL [Coreg] 25 mg PO BID #60 tablet Losartan [Cozaar] 100 mg PO QDAY #30 tablet Aspirin EC [Halfprin EC] 81 mg PO QDAY #30 tablet Potassium Chloride [K-Dur] 10 meq PO QDAY #30 tablet Furosemide [Lasix TAB] 40 mg PO QDAY #30 tablet Pravastatin [Pravachol] 40 mg PO QHS #30 tablet NIFEdipine XL [Procardia Xl] 90 mg PO QDAY #30
[2019-10-15] MEDS ORDERED: DOXAZOSIN 4 MG TAB PO SCH (22:00)
== END 2019-10-15 17:00 | disposition home or self-care (01) | DRG 65 ==
LOC: ED 14:03 → INTOOBSV 17:21 → 4A 17:21 → OBSVTOIN 10-14 09:31
PROVIDERS: ADMIT Internal Medicine; ATTEND Internal Medicine
DX: I63.9 Cerebral infarction, unspecified (principal); I42.8 Other cardiomyopathies; I16.0 Hypertensive urgency; F10.10 Alcohol abuse, uncomplicated; I11.0 Hypertensive heart disease with heart failure; I50.9 Heart failure, unspecified; D64.9 Anemia, unspecified; R29.705 NIHSS score 5; Z91.14 Patient's other noncompliance with medication regimen; Z79.82 Long term (current) use of aspirin; Z79.899 Other long term (current) drug therapy
CPT/HCPCS: 36415; 70450; 70496; 70498; 80048; 80053; 80061; 80076; 80307; 81001; 82550; 82553; 82962; 84484; 85025; 85610; 85670; 85730; 86850; 86900; 86901; 93005; 93010; 93306; 96365; G0378; A9270-GY; J0360; J1650; J1940; Q9967